=== PATIENT | female | born 1940 | race Caucasian/White ===

== ENCOUNTER 2020-02-17 13:46 | Emergency (ER) | payer MEDICARE, SELFPAY ==
[2020-02-17 14:12] VITALS: BP 121/67; PULSE 113; RESP 18; TEMP 37.2; O2SAT 95; BMI 29.0
--- NOTE | 2020-02-17 14:13 | XR_ITS ---
WS: [id number] RIGHT WRIST: 3 VIEW(S) TECHNIQUE: PA, oblique and lateral. HISTORY: fall COMPARISON: None available. Acute radial metaphyseal fracture with intra-articular extension. Mild posterior displacement and ove rlapping of the distal fracture involving the radius. Avulsion of the ulnar styloid. Soft tissue edema around the wrist. XR/XR wrist RT min 3V* [id number] IMPRESSION: 1. Transverse intra-articular fracture with dorsal displacement involving the radius. 2. Nondisplaced ulnar styloid fracture.
--- NOTE | 2020-02-17 14:22 | XR_ITS ---
WS: [id number] RIGHT KNEE: 3 VIEW(S) TECHNIQUE: AP, oblique(s) and lateral. HISTORY: fall COMPARISON: None available. Severe narrowing of the medial and patellofemoral joint compartments. No acute fracture is identified . Small osteophytes of all 3 compartments. No joint effusion. No soft tissue abnormality. XR/XR knee RT 3V* [id number] IMPRESSION: Severe medial and patellofemoral compartment osteoarthritis. No fracture.
[2020-02-17 15:12] VITALS: RESP 18
--- NOTE | 2020-02-17 15:14 | W.ED.FALL ---
HPI - Fall General: Chief Complaint: Extremity Injury, Upper Stated Complaint: fall/R wrist deformity Time Seen by Provider: 02/17/20 15:09 Source: patient Mode of arrival: ambulatory Limitations: no limitations History of Present Illness: HPI Narrative: Patient is a very nice 79-year-old female who comes in to the ED today for evaluation following a fall. Patient tells me she was cutting a branch in her yard and tripped and fell. She immediately noticed right wrist pain. She was able to get up and ambulate without assistance. She normally has pain in her right knee due to arthritis and noticed over the past 1 to 2 hours pain slightly worse than her baseline. MD complaint: fall Associated symptoms-after fall: Denies abdominal pain, chest pain or neck pain Review of Systems Eyes: Denies: change in vision, blurry vision, photophobia, floaters or seeing flashes Card: Denies: chest pain Resp: Denies: dyspnea GI: Denies: abdominal pain Musc: Reports: joint pain (chronic R knee-worse than baseline; R wrist) and joint swelling (chronic R knee); Denies: neck pain, back pain, extremity pain or extremity swelling PFSH ED PFSH: Social History Smoking and tobacco status: never smoked Physical Exam Const: COMMON NORMALS: no acute distress, average body habitus, patient oriented x3, no limitations, healthy appearing, alert and well nourished ORIENTATION/CONSCIOUSNESS: Yes oriented to person, Yes oriented to place and Yes oriented to time HENMT: COMMON NORMALS: normocephalic and atraumatic HEAD & SCALP: normocephalic and atraumatic Neck/C-Spine: COMMON NORMALS: full ROM CERVICAL SPINE: No Cervical spine tenderness and No Paracervical muscle tenderness Chest: COMMONS NORMALS: normal inspection of the chest and normal palpation of entire chest wall Resp: COMMON NORMALS: normal respiratory effort Back/Pelvis: COMMON NORMALS: thoracic and lumbar spine normal to inspection, no thoracic nor lumbar tenderness and thoraco-lumbar ROM normal Extremity: GENERAL: Yes normal exam except as noted OTHER: TTP R distal radius; deformity consistent with fracture; NV intact; swelling throughout R knee that is normal per patient; maintains ROM; ambulatory with limp Neuro: TISH COMA SCALE: document GCS findings [place] coma scale eye opening: Spontaneous [place] coma scale verbal response: Orientated [place] coma scale motor response: Obey commands Tish coma scale total score: 15 COMMON NORMALS: patient oriented x3, moves all extremities, no focal motor deficits and no sensory deficits noted SENSORIUM/ORIENTATION: Yes alert, Yes oriented to person, Yes oriented to place and Yes oriented to time Skin: COMMON NORMALS: no rashes or lesions noted GENERAL SKIN EXAM: no rashes or lesions noted Course Vital Signs: Vital signs: Vital Signs Temperature 98.9 F 02/17/20 14:12 Pulse Rate 113 H 02/17/20 14:12 Respiratory Rate 18 02/17/20 15:44 Blood Pressure 121/67 02/17/20 14:12 Pulse Oximetry 95 02/17/20 14:12 MDM - Fall Imaging Data^: R wrist XR: Radiologist's impression: [place] [address] XRay Report Signed Patient: Yara Skaggs Unit #: [id number] : 1940 Age/Sex: 79 / F ADM Date: 02/17/20 Loc: ER Room/Bed: Attending Dr: Ordering Provider/Ordering MD: Mery Gomez Date of Service: 02/17/20 Procedure(s): XR wrist RT min 3V* [id number] Accession Number(s): [id number] Report Number: [id number] WS: [id number] RIGHT WRIST: 3 VIEW(S) TECHNIQUE: PA, oblique and lateral. HISTORY: fall COMPARISON: None available. Acute radial metaphyseal fracture with intra-articular extension. Mild posterior displacement and overlapping of the distal fracture involving the radius. Avulsion of the ulnar styloid. Soft tissue edema around the wrist. XR/XR wrist RT min 3V* [id number] IMPRESSION: 1. Transverse intra-articular fracture with dorsal displacement involving the radius. 2. Nondisplaced ulnar styloid fracture. Dictated By: Judi Ngo DO Signed By: Judi Ngo DO Signed Date/Time: 02/17/201441 DD/ 1441 R knee XR: Radiologist's impression: [address] [address] XRay Report Signed Patient: Yara Skaggs Unit #: [id number] : 1940 Age/Sex: 79 / F ADM Date: 02/17/20 Loc: ER Room/Bed: Attending Dr: Ordering Provider/Ordering MD: Mery Gomez Date of Service: 02/17/20 Procedure(s): XR knee RT 3V* [id number] Accession Number(s): [id number] Report Number: [id number] WS: [id number] RIGHT KNEE: 3 VIEW(S) TECHNIQUE: AP, oblique(s) and lateral. HISTORY: fall COMPARISON: None available. Severe narrowing of the medial and patellofemoral joint compartments. No acute fracture is identified. Small osteophytes of all 3 compartments. No joint effusion. No soft tissue abnormality. XR/XR knee RT 3V* [id number] IMPRESSION: Severe medial and patellofemoral compartment osteoarthritis. No fracture. Dictated By: Judi Ngo DO Signed By: Judi Ngo DO Signed Date/Time: 02/17/201537 DD/ 36 Discharge Plan Discharge Patient Disposition: Home, Self-Care Clinical Impression: Closed fracture of right distal radius Qualifiers: Encounter type: initial encounter Fracture morphology: other intra-articular Qualified Code(s): S52.571A - Other intraarticular fracture of lower end of right radius, initial encounter for closed fracture Fracture of right ulnar styloid Qualifiers: Encounter type: initial encounter Fracture type: closed Fracture alignment: nondisplaced Qualified Code(s): S52.614A - Nondisplaced fracture of right ulna styloid process, initial encounter for closed fracture Condition: Stable Prescriptions: New hydrocodone-acetaminophen 5-325 mg tablet 1 tab PO Q6H PRN (Reason: pain) Qty: 15 RF: 0 Discharge Orders: Discharge Order (Routine); Ordered 02/17/20 Ordered By: Mery Gomez Referrals: Markel Correia MD [Primary Care Provider] - Activity Restrictions/Additional Instructions: As discussed you may continue your normal tramadol as needed for pain. If this is not controlling your pain you may switch and begin taking the hydrocodone I prescribed to you today. Please do not take both medications at the same time. As discussed case management will call you tomorrow to give you your appointment date and time for orthopedic follow-up. Discharge Date/Time: 02/17/20 15:46 Coding Level of Care Code ED Order Management Specialist for [place] Fwd Exam Comprehensive
[2020-02-17 15:44] VITALS: RESP 18
--- NOTE | 2020-02-18 10:25 | DCPLANNER ---
patient relations manager had message to schedule a follow up appointment for patient with ortho. patient relations manager called the ortho clinic, spoke with Maricruz, gave clinic patients information. patient relations manager was told that patients information would be printed and reviewed. Clinic will call case technician and patient with appointment information.
--- NOTE | 2020-02-22 07:33 | DCPLANNER ---
Patient had a follow up appointment scheduled for 02.21.20 with ortho, patient did attend the appointment.
== END 2020-02-17 15:46 | disposition home or self-care (01) ==
PROVIDERS: Emergency Provider Physician Assistant; PCP Family Medicine
DX: S52.571A Other intraarticular fracture of lower end of right radius, initial encounter for closed fracture (principal); S52.614A Nondisplaced fracture of right ulna styloid process, initial encounter for closed fracture; W18.09XA Striking against other object with subsequent fall, initial encounter
CPT/HCPCS: 12345; 29125; 73110; 73562; 99282; 99283

== ENCOUNTER → 2020-02-21 15:25 | Outpatient (BNVA) | payer MEDICARE, SELFPAY | PROVIDERS: PCP Family Medicine; Visit Provider Specialist | DX: S52.571A Other intraarticular fracture of lower end of right radius, initial encounter for closed fracture (principal); S52.614A Nondisplaced fracture of right ulna styloid process, initial encounter for closed fracture | CPT/HCPCS: 73110 ==

== ENCOUNTER 2020-02-21 17:14 | Outpatient (CLI) | payer MEDICARE, SELFPAY | END 2020-02-21 17:15 | disposition home or self-care (01) | LOC: SPT 17:15 | PROVIDERS: PCP Family Medicine; Visit Provider Specialist | DX: Z46.89 Encounter for fitting and adjustment of other specified devices (principal); S52.571D Other intraarticular fracture of lower end of right radius, subsequent encounter for closed fracture with routine healing; S52.614D Nondisplaced fracture of right ulna styloid process, subsequent encounter for closed fracture with routine healing; X58.XXXD Exposure to other specified factors, subsequent encounter | CPT/HCPCS: 73110; 97760; L3982 ==

== ENCOUNTER → 2020-03-06 10:40 | Outpatient (BNVA) | payer MEDICARE, SELFPAY | PROVIDERS: PCP Family Medicine; Visit Provider Specialist | DX: S52.571A Other intraarticular fracture of lower end of right radius, initial encounter for closed fracture (principal); S52.614A Nondisplaced fracture of right ulna styloid process, initial encounter for closed fracture; X58.XXXA Exposure to other specified factors, initial encounter | CPT/HCPCS: 73110 ==

== ENCOUNTER 2020-04-03 08:31 | Outpatient (CLI) | payer MEDICARE, SELFPAY ==
--- NOTE | 2020-04-03 08:40 | XR_ITS ---
WS: [id number] Right wrist, 3 views, 04/03/2020 Clinical Data: fracture Comparison: Right wrist, 03/06/2020. Findings: The fracture of the distal right radius again is seen. The ulnar styloid fracture is noted. No new fr actures or dislocations are seen. There is a cast about the right wrist. XR/XR wrist RT min 3V* [id number] Impression: No change in distal right radial fracture and right ulnar styloid fracture.
== END 2020-04-03 08:32 | disposition home or self-care (01) ==
LOC: RAD 08:36
PROVIDERS: PCP Family Medicine; Visit Provider Specialist
DX: S52.91XA Unspecified fracture of right forearm, initial encounter for closed fracture (principal); S52.611A Displaced fracture of right ulna styloid process, initial encounter for closed fracture; X58.XXXA Exposure to other specified factors, initial encounter
CPT/HCPCS: 73110

== ENCOUNTER 2020-04-03 11:54 | Outpatient (CLI) | payer MEDICARE, SELFPAY | END 2020-04-03 11:55 | disposition home or self-care (01) | LOC: SPT 11:54 | PROVIDERS: PCP Family Medicine; Visit Provider Specialist | DX: Z46.89 Encounter for fitting and adjustment of other specified devices (principal); S52.571A Other intraarticular fracture of lower end of right radius, initial encounter for closed fracture; S52.614A Nondisplaced fracture of right ulna styloid process, initial encounter for closed fracture; X58.XXXA Exposure to other specified factors, initial encounter; S52.91XA Unspecified fracture of right forearm, initial encounter for closed fracture; S52.611A Displaced fracture of right ulna styloid process, initial encounter for closed fracture | CPT/HCPCS: 73110; 97760; L3908 ==

== ENCOUNTER → 2022-02-05 08:39 | Outpatient (BNVA) | payer MEDICARE, SELFPAY | PROVIDERS: PCP Family Medicine; Visit Provider Family Medicine | DX: I48.91 Unspecified atrial fibrillation (principal); I25.10 Atherosclerotic heart disease of native coronary artery without angina pectoris; I10 Essential (primary) hypertension; Z51.81 Encounter for therapeutic drug level monitoring; E78.5 Hyperlipidemia, unspecified | CPT/HCPCS: 85610 ==

== ENCOUNTER → 2022-02-19 09:29 | Outpatient (BNVA) | payer MEDICARE, SELFPAY | PROVIDERS: PCP Family Medicine; Visit Provider Family Medicine | DX: I48.91 Unspecified atrial fibrillation (principal); I25.10 Atherosclerotic heart disease of native coronary artery without angina pectoris; I10 Essential (primary) hypertension; Z51.81 Encounter for therapeutic drug level monitoring; E78.5 Hyperlipidemia, unspecified | CPT/HCPCS: 85610 ==

== ENCOUNTER → 2022-03-19 11:27 | Outpatient (BNVA) | payer MEDICARE, SELFPAY | PROVIDERS: PCP Family Medicine; Visit Provider Family Medicine | DX: I48.91 Unspecified atrial fibrillation (principal); I25.10 Atherosclerotic heart disease of native coronary artery without angina pectoris; I10 Essential (primary) hypertension; Z51.81 Encounter for therapeutic drug level monitoring; E78.5 Hyperlipidemia, unspecified | CPT/HCPCS: 85610 ==

== ENCOUNTER → 2022-04-02 08:18 | Outpatient (BNVA) | payer MEDICARE, SELFPAY | PROVIDERS: PCP Family Medicine; Visit Provider Family Medicine | DX: I48.91 Unspecified atrial fibrillation (principal); I25.10 Atherosclerotic heart disease of native coronary artery without angina pectoris; I10 Essential (primary) hypertension | CPT/HCPCS: 85610 ==

== ENCOUNTER → 2022-04-30 08:39 | Outpatient (BNVA) | payer MEDICARE, SELFPAY | PROVIDERS: PCP Family Medicine; Visit Provider Family Medicine | DX: I25.10 Atherosclerotic heart disease of native coronary artery without angina pectoris (principal); S52.611A Displaced fracture of right ulna styloid process, initial encounter for closed fracture; S52.501A Unspecified fracture of the lower end of right radius, initial encounter for closed fracture | CPT/HCPCS: 85610 ==

== ENCOUNTER → 2022-05-28 08:24 | Outpatient (BNVA) | payer MEDICARE, SELFPAY | PROVIDERS: PCP Family Medicine; Visit Provider Family Medicine | DX: I25.10 Atherosclerotic heart disease of native coronary artery without angina pectoris (principal); S52.611A Displaced fracture of right ulna styloid process, initial encounter for closed fracture; X58.XXXA Exposure to other specified factors, initial encounter | CPT/HCPCS: 85610 ==

== ENCOUNTER → 2022-06-11 10:48 | Outpatient (BNVA) | payer MEDICARE, SELFPAY | PROVIDERS: PCP Family Medicine; Visit Provider Family Medicine | DX: I25.10 Atherosclerotic heart disease of native coronary artery without angina pectoris (principal); I50.9 Heart failure, unspecified; Z79.01 Long term (current) use of anticoagulants | CPT/HCPCS: 85610 ==

== ENCOUNTER 2022-06-14 08:39 | Outpatient (CLI) | payer MEDICARE, SELFPAY ==
[2022-06-14 09:29] LABS: INR 2.18 (0.8-1.2)
== END 2022-06-14 08:40 | disposition home or self-care (01) ==
LOC: LAB 08:42
PROVIDERS: PCP Family Medicine; Visit Provider Family Medicine
DX: Z79.01 Long term (current) use of anticoagulants (principal)
CPT/HCPCS: 85610

== ENCOUNTER → 2022-06-25 08:49 | Outpatient (BNVA) | payer MEDICARE, SELFPAY | PROVIDERS: PCP Family Medicine; Visit Provider Family Medicine | DX: Z79.01 Long term (current) use of anticoagulants (principal) | CPT/HCPCS: 85610 ==

== ENCOUNTER → 2022-07-09 08:59 | Outpatient (BNVA) | payer MEDICARE, SELFPAY | PROVIDERS: PCP Family Medicine; Visit Provider Family Medicine | DX: I48.91 Unspecified atrial fibrillation (principal); I25.10 Atherosclerotic heart disease of native coronary artery without angina pectoris; I10 Essential (primary) hypertension; Z79.01 Long term (current) use of anticoagulants | CPT/HCPCS: 85610 ==

== ENCOUNTER → 2022-07-30 08:14 | Outpatient (BNVA) | payer MEDICARE, SELFPAY | PROVIDERS: PCP Family Medicine; Visit Provider Family Medicine | DX: Z79.01 Long term (current) use of anticoagulants (principal); I25.10 Atherosclerotic heart disease of native coronary artery without angina pectoris | CPT/HCPCS: 85610 ==

== ENCOUNTER → 2022-08-23 12:15 | Outpatient (BNVA) | payer MEDICARE, SELFPAY | PROVIDERS: PCP Family Medicine; Visit Provider Family Medicine | DX: I25.10 Atherosclerotic heart disease of native coronary artery without angina pectoris (principal); Z79.01 Long term (current) use of anticoagulants | CPT/HCPCS: 85610 ==

== ENCOUNTER → 2022-09-03 10:34 | Outpatient (BNVA) | payer MEDICARE, SELFPAY | PROVIDERS: PCP Family Medicine; Visit Provider Family Medicine | DX: I25.10 Atherosclerotic heart disease of native coronary artery without angina pectoris (principal); Z79.01 Long term (current) use of anticoagulants | CPT/HCPCS: 85610 ==

== ENCOUNTER → 2022-09-19 09:29 | Outpatient (BNVA) | payer MEDICARE, SELFPAY | PROVIDERS: PCP Family Medicine; Visit Provider Family Medicine | DX: I48.91 Unspecified atrial fibrillation (principal); Z79.01 Long term (current) use of anticoagulants | CPT/HCPCS: 85610 ==

== ENCOUNTER → 2022-10-03 09:57 | Outpatient (BNVA) | payer MEDICARE, SELFPAY | PROVIDERS: PCP Family Medicine; Visit Provider Family Medicine | DX: I48.91 Unspecified atrial fibrillation (principal); Z79.01 Long term (current) use of anticoagulants | CPT/HCPCS: 85610 ==

== ENCOUNTER → 2022-10-04 08:49 | Outpatient (BNVA) | payer MEDICARE, SELFPAY | PROVIDERS: PCP Family Medicine; Visit Provider Internal Medicine Cardiovascular Disease | DX: I48.91 Unspecified atrial fibrillation (principal); I25.10 Atherosclerotic heart disease of native coronary artery without angina pectoris; Z95.3 Presence of xenogenic heart valve; I11.0 Hypertensive heart disease with heart failure; I50.9 Heart failure, unspecified; Z79.01 Long term (current) use of anticoagulants | CPT/HCPCS: 99214; Q3014 ==

== ENCOUNTER → 2022-10-31 09:41 | Outpatient (BNVA) | payer MEDICARE, SELFPAY | PROVIDERS: PCP Family Medicine; Visit Provider Family Medicine | DX: I48.91 Unspecified atrial fibrillation (principal); Z79.01 Long term (current) use of anticoagulants | CPT/HCPCS: 85610 ==

== ENCOUNTER → 2022-11-26 09:18 | Outpatient (BNVA) | payer MEDICARE, SELFPAY | PROVIDERS: PCP Family Medicine; Visit Provider Family Medicine | DX: I10 Essential (primary) hypertension (principal); I48.91 Unspecified atrial fibrillation; I25.10 Atherosclerotic heart disease of native coronary artery without angina pectoris | CPT/HCPCS: 80053; 80061; 85025; 85610 ==

== ENCOUNTER → 2022-12-05 09:00 | Outpatient (BNVA) | payer MEDICARE, SELFPAY | PROVIDERS: PCP Family Medicine; Visit Provider Family Medicine | DX: I48.91 Unspecified atrial fibrillation (principal); Z79.01 Long term (current) use of anticoagulants | CPT/HCPCS: 85610 ==

== ENCOUNTER → 2022-12-19 12:44 | Outpatient (BNVA) | payer MEDICARE, SELFPAY | PROVIDERS: PCP Family Medicine; Visit Provider Family Medicine | DX: I48.91 Unspecified atrial fibrillation (principal) | CPT/HCPCS: 85610 ==

== ENCOUNTER 2022-12-23 11:39 | Outpatient (CLI) | payer MEDICARE, SELFPAY ==
--- NOTE | 2022-12-23 12:15 | USCV_ITS ---
Yara Skaggs Age: 81 Gender: F : 1940 Exam Date: 12/23/2022 12:09 Ordering Phys: Laurence Holloway MD ([email or web address]) Technologist: Tyler Lee Exam Location: [facility] – [place] Indication: presence of xenogenic heart valves BP: 112 / 65 HR: 92 Rhythm: Other Technical Quality: Adequate MEASUREMENTS (Male / Female) Normal Values 2D ECHO LV Diastolic Diameter PLAX 4.9 cm 4.2 - 5.9 / 3.9 - 5.3 cm LV Systolic Diameter PLAX 3.6 cm IVS Diastolic Thickness 0.8 cm 0.6 - 1.0 / 0.6 - 0.9 cm IVS Systolic Thickness 1.2 cm LVPW Diastolic Thickness 1.3 cm 0.6 - 1.0 / 0.6 - 0.9 cm LVPW Systolic Thickness 1.3 cm LVOT Diameter 2.1 cm LV Ejection Fraction 2D Teich 50.1 % LV Ejection Fraction MOD 2C 55.2 % LV Ejection Fraction 2C AL 54.9 % LA Diameter 4.9 cm LA Width 3.7 cm LA Height 4.5 cm RA Width 4.2 cm RA Height 4.5 cm Aorta at Sinotubular Diameter 2.3 cm IVC Diameter 1.9 cm M-MODE Aortic Annulus Diameter 1.9 cm LA Ao Ratio MM 2.5 DOPPLER AV Peak Velocity 269.0 cm/s LVOT Peak Velocity 73.0 cm/s AV Area Cont Eq vti 1.0 cm squared AV Area Cont Eq pk 0.9 cm squared MV Peak Velocity 190.0 cm/s MV Area PHT 3.0 cm squared MV E' Velocity 84.5 cm/s Mitral E to MV E' Ratio 19.6 Mitral E to LV E' Lateral Ratio 13.3 Mitral E to LV E' Septal Ratio 38.3 TR Peak Velocity 305.0 cm/s TR Peak Gradient 37.2 mmHg TR Mean Velocity 238.1 cm/s TR Mean Gradient 24.7 mmHg TR Velocity Time Integral 92.8 cm Right Atrial Pressure 3.0 mmHg Pulmonary Artery Systolic Pressu 40.2 mmHg PV Peak Velocity 80.0 cm/s RV Acceleration Time 0.1 s RV Ejection Time 0.3 s RV AcT/ET 0.3 FINDINGS Left Ventricle Left ventricle is normal in size. LV systolic function is normal with EF 50 to 55%. No regional wall motion abnormalities are seen. Right Ventricle Mildly hypokinetic Right Atrium Normal in size Left Atrium Dilated Mitral Valve Bioprosthetic mitral valve is noted. Mean gradient across mitral valve is 5.2 mmHg. This is consistent with mild mitral stenosis. Mild mitral regurgitation. Aortic Valve Aortic valve is thickened and calcified. Moderate aortic stenosis with mean gradient across aortic valve of 16.3 mmHg and aortic valve area of 1 cm squared. Mild aortic regurgitation. Tricuspid Valve Mild to moderate tricuspid regurgitation. RVSP is 40 to 45 mmHg. This is consistent with mild pulmonary hypertension. Pulmonic Valve Not well-visualized. Mild pulmonic regurgitation. Pericardium Normal Aorta Normal in size IVC Appears to be normal CONCLUSIONS LV systolic function is normal with EF 50 to 55%. Mildly hypokinetic right ventricle Left atrial dilation Bioprosthetic mitral valve is noted. Mild mitral stenosis. Mild mitral regurgitation. Moderate aortic stenosis. Mild aortic regurgitation Mild to moderate tricuspid regurgitation Mild pulmonary hypertension Mild pulmonic regurgitation Compared to prior echocardiogram from 2017, patient now has moderate aortic stenosis and mild pulmonary hypertension. Moreno Brody MD (Electronically Signed) Final Date: 04 January 2023 14:16 S
== END 2022-12-23 11:40 | disposition home or self-care (01) ==
PROVIDERS: PCP Family Medicine; Visit Provider Internal Medicine Cardiovascular Disease
DX: Z95.3 Presence of xenogenic heart valve (principal); I27.20 Pulmonary hypertension, unspecified; I08.3 Combined rheumatic disorders of mitral, aortic and tricuspid valves
CPT/HCPCS: 93306

== ENCOUNTER → 2023-01-03 06:49 | Outpatient (BNVA) | payer MEDICARE, SELFPAY | PROVIDERS: PCP Family Medicine; Visit Provider Family Medicine | DX: I48.91 Unspecified atrial fibrillation (principal) | CPT/HCPCS: 85610 ==

== ENCOUNTER → 2023-01-29 12:16 | Outpatient (BNVA) | payer MEDICARE, SELFPAY | PROVIDERS: PCP Family Medicine; Visit Provider Family Medicine | DX: I48.91 Unspecified atrial fibrillation (principal) | CPT/HCPCS: 85610 ==

== ENCOUNTER → 2023-02-25 10:08 | Outpatient (BNVA) | payer MEDICARE, SELFPAY | PROVIDERS: PCP Family Medicine; Visit Provider Family Medicine | DX: I48.91 Unspecified atrial fibrillation (principal); Z79.01 Long term (current) use of anticoagulants | CPT/HCPCS: 85610 ==

== ENCOUNTER → 2023-03-27 08:49 | Outpatient (BNVA) | payer MEDICARE, SELFPAY | PROVIDERS: PCP Family Medicine; Visit Provider Family Medicine | DX: Z79.01 Long term (current) use of anticoagulants (principal) | CPT/HCPCS: 85610 ==

== ENCOUNTER → 2023-04-22 10:33 | Outpatient (BNVA) | payer MEDICARE, SELFPAY | PROVIDERS: PCP Family Medicine; Visit Provider Family Medicine | DX: I10 Essential (primary) hypertension (principal); I48.91 Unspecified atrial fibrillation; Z79.01 Long term (current) use of anticoagulants | CPT/HCPCS: 85610 ==

== ENCOUNTER → 2023-05-22 08:07 | Outpatient (BNVA) | payer MEDICARE, SELFPAY | PROVIDERS: PCP Family Medicine; Visit Provider Family Medicine | DX: I48.91 Unspecified atrial fibrillation (principal); Z79.01 Long term (current) use of anticoagulants | CPT/HCPCS: 85610 ==

== ENCOUNTER → 2023-05-27 08:55 | Outpatient (BNVA) | payer MEDICARE, SELFPAY | PROVIDERS: PCP Family Medicine; Visit Provider Family Medicine | DX: I48.91 Unspecified atrial fibrillation (principal); I10 Essential (primary) hypertension; I25.10 Atherosclerotic heart disease of native coronary artery without angina pectoris | CPT/HCPCS: 80053; 80061; 85025 ==

== ENCOUNTER → 2023-06-19 08:59 | Outpatient (BNVA) | payer MEDICARE, SELFPAY | PROVIDERS: PCP Family Medicine; Visit Provider Family Medicine | DX: I48.91 Unspecified atrial fibrillation (principal); Z79.01 Long term (current) use of anticoagulants | CPT/HCPCS: 85610 ==

== ENCOUNTER → 2023-07-17 08:21 | Outpatient (BNVA) | payer MEDICARE, SELFPAY | PROVIDERS: PCP Family Medicine; Visit Provider Family Medicine | DX: I48.91 Unspecified atrial fibrillation (principal); Z79.01 Long term (current) use of anticoagulants | CPT/HCPCS: 85610 ==

== ENCOUNTER → 2023-08-11 08:59 | Outpatient (BNVA) | payer MEDICARE, SELFPAY | PROVIDERS: PCP Family Medicine; Visit Provider Family Medicine | DX: Z79.01 Long term (current) use of anticoagulants (principal) | CPT/HCPCS: 85610 ==

== ENCOUNTER → 2023-09-09 09:17 | Outpatient (BNVA) | payer MEDICARE, SELFPAY | PROVIDERS: PCP Family Medicine; Visit Provider Family Medicine | DX: I48.91 Unspecified atrial fibrillation (principal) | CPT/HCPCS: 85610 ==

== ENCOUNTER → 2023-10-16 07:50 | Outpatient (BNVA) | payer MEDICARE, SELFPAY | PROVIDERS: PCP Family Medicine; Visit Provider Family Medicine | DX: Z79.01 Long term (current) use of anticoagulants (principal) | CPT/HCPCS: 85610 ==

== ENCOUNTER → 2023-11-13 08:51 | Outpatient (BNVA) | payer MEDICARE, SELFPAY | PROVIDERS: PCP Family Medicine; Visit Provider Family Medicine | DX: I48.91 Unspecified atrial fibrillation (principal) | CPT/HCPCS: 85610 ==

== ENCOUNTER → 2023-11-25 09:39 | Outpatient (BNVA) | payer MEDICARE, SELFPAY | PROVIDERS: PCP Family Medicine; Visit Provider Family Medicine | DX: I10 Essential (primary) hypertension (principal); I25.10 Atherosclerotic heart disease of native coronary artery without angina pectoris; I48.91 Unspecified atrial fibrillation | CPT/HCPCS: 80053; 80061; 85025 ==

== ENCOUNTER → 2023-12-11 08:21 | Outpatient (BNVA) | payer MEDICARE, SELFPAY | PROVIDERS: PCP Family Medicine; Visit Provider Family Medicine | DX: I48.91 Unspecified atrial fibrillation (principal) | CPT/HCPCS: 85610 ==

== ENCOUNTER 2023-12-18 10:39 | Outpatient (CLI) | payer MEDICARE, SELFPAY ==
--- NOTE | 2023-12-18 11:15 | USCV_ITS ---
Yara Skaggs Age: 82 Gender: F : 1940 Exam Date: 12/18/2023 11:00 Ordering Phys: Markel Correia MD Technologist: TESS Exam Location: [facility] – [place] Indication: AORTIC STENOSIS BP: 98 / 54 HR: 81 Rhythm: Sinus Technical Quality: Adequate MEASUREMENTS (Male / Female) Normal Values 2D ECHO LV Diastolic Diameter PLAX 4.8 cm 4.2 - 5.9 / 3.9 - 5.3 cm IVS Diastolic Thickness 1.5 cm 0.6 - 1.0 / 0.6 - 0.9 cm IVS Systolic Thickness 2.1 cm LVPW Diastolic Thickness 1.6 cm 0.6 - 1.0 / 0.6 - 0.9 cm LVPW Systolic Thickness 2.7 cm LVOT Diameter 2.0 cm LV Ejection Fraction 2D Teich 70.3 % LV Ejection Fraction MOD 2C 50.8 % LV Ejection Fraction 2C AL 53.5 % LA Diameter 4.3 cm RA Systolic Volume 4C AL 68.5 ml RA Systolic Volume 4C MOD 63.9 ml Aorta at Sinotubular Diameter 3.1 cm IVC Diameter 1.2 cm M-MODE LA Ao Ratio MM 1.6 AV Cusp Separation MM 1.0 cm DOPPLER AV Peak Velocity 248.3 cm/s LVOT Peak Velocity 106.0 cm/s AV Area Cont Eq vti 1.4 cm squared AV Area Cont Eq pk 1.3 cm squared MV Peak Velocity 188.0 cm/s MV Area PHT 2.4 cm squared Mitral E to A Ratio 0.0 TR Peak Velocity 236.0 cm/s TR Peak Gradient 22.3 mmHg TR Mean Velocity 185.0 cm/s TR Mean Gradient 14.7 mmHg TR Velocity Time Integral 70.8 cm TV Peak E Velocity 57.0 cm/s Right Atrial Pressure 3.0 mmHg Pulmonary Artery Systolic Pressu 25.3 mmHg PV Peak Velocity 86.0 cm/s RV Ejection Time 0.3 s FINDINGS Left Ventricle Left ventricle is normal in size. LV systolic function is normal with EF of 50-55%. No regional wall motion abnormalities are seen. Right Ventricle Mildly hypokinetic Right Atrium Normal in size Left Atrium Dilated Mitral Valve Bioprosthetic mitral valve is seen. Mean gradient across mitral valve is 5.2 mmHg. This is consistent with mild mitral stenosis. Mild mitral regurgitation. Aortic Valve Aortic valve is thickened. Mild to moderate aortic stenosis with aortic valve area 1.4 cm squared and mean gradient of 19 mmHg. Mild aortic regurgitation. Tricuspid Valve Mild to moderate tricuspid regurgitation. Pulmonary artery systolic pressure is normal. Pulmonic Valve Mild pulmonic regurgitation. Pericardium Normal Aorta Normal in size IVC Appears to be normal CONCLUSIONS LV systolic function is normal with EF of 50 to 55%. RV is mildly hypokinetic. Left atrial dilation. Bioprosthetic mitral valve is seen. Mild mitral stenosis. Mild mitral regurgitation. Mild to moderate aortic stenosis. Mild aortic regurgitation. Mild to moderate tricuspid regurgitation. Mild pulmonic regurgitation. Compared to prior echocardiogram from 12/2022, no significant changes are seen. Moreno Brody MD (Electronically Signed) Final Date: 23 December 2023 10:01 S
== END 2023-12-18 10:40 | disposition home or self-care (01) ==
LOC: RAD 10:39
PROVIDERS: PCP Family Medicine; Visit Provider Family Medicine
DX: Z95.3 Presence of xenogenic heart valve (principal); I08.3 Combined rheumatic disorders of mitral, aortic and tricuspid valves
CPT/HCPCS: 93306

== ENCOUNTER → 2024-01-08 08:46 | Outpatient (BNVA) | payer MEDICARE, SELFPAY | PROVIDERS: PCP Family Medicine; Visit Provider Family Medicine | DX: I48.91 Unspecified atrial fibrillation (principal) | CPT/HCPCS: 85610 ==

== ENCOUNTER → 2024-02-05 08:54 | Outpatient (BNVA) | payer MEDICARE, SELFPAY | PROVIDERS: PCP Family Medicine; Visit Provider Family Medicine | DX: I48.91 Unspecified atrial fibrillation (principal) | CPT/HCPCS: 85610 ==

== ENCOUNTER → 2024-03-04 08:12 | Outpatient (BNVA) | payer MEDICARE, SELFPAY | PROVIDERS: PCP Family Medicine; Visit Provider Family Medicine | DX: I48.91 Unspecified atrial fibrillation (principal) | CPT/HCPCS: 85610 ==

== ENCOUNTER → 2024-04-01 08:48 | Outpatient (BNVA) | payer MEDICARE, SELFPAY | PROVIDERS: PCP Family Medicine; Visit Provider Family Medicine | DX: I48.91 Unspecified atrial fibrillation (principal) | CPT/HCPCS: 85610 ==

== ENCOUNTER → 2024-04-29 08:22 | Outpatient (BNVA) | payer MEDICARE, SELFPAY | PROVIDERS: PCP Family Medicine; Visit Provider Family Medicine | DX: I48.91 Unspecified atrial fibrillation (principal) | CPT/HCPCS: 85610 ==

== ENCOUNTER → 2024-05-25 09:16 | Outpatient (BNVA) | payer MEDICARE, SELFPAY | PROVIDERS: PCP Family Medicine; Visit Provider Family Medicine | DX: I10 Essential (primary) hypertension (principal); I25.10 Atherosclerotic heart disease of native coronary artery without angina pectoris; I48.91 Unspecified atrial fibrillation; Z95.3 Presence of xenogenic heart valve | CPT/HCPCS: 80053; 80061; 85025; 85610 ==

== ENCOUNTER → 2024-06-14 08:43 | Outpatient (BNVA) | payer MEDICARE, SELFPAY | PROVIDERS: PCP Family Medicine; Visit Provider Family Medicine | DX: I48.91 Unspecified atrial fibrillation (principal) | CPT/HCPCS: 85610 ==

== ENCOUNTER 2024-06-30 08:45 | Outpatient (CLI) | payer MEDICARE, SELFPAY ==
--- NOTE | 2024-06-30 09:15 | USCV_ITS ---
Yara Skaggs Age: 83 Gender: F : 1940 Exam Date: 06/30/2024 09:20 Ordering Phys: Markel Correia MD Technologist: CT Exam Location[place] [facility] – [place] Indication: Risk Factors: Previous Vascular Surgery: Right Brachial BP: / Left Brachial BP: / Right Left Velocity (cm/s) Spectral Plaque Velocity (cm/s) Spectral Plaque Syst/Diast Broadening Syst/Diast Broadening 54.40/ 14.90 Prox CCA 56.60 / 17.80 53.60/ 14.20 Mid CCA 47.50 / 15.50 50.90/ 17.30 Distal CCA 47.00 / 15.60 99.10/ 31.90 Prox ICA 63.40 / 14.70 48.70/ 14.80 Mid ICA 57.00 / 17.60 52.70/ 17.20 Distal ICA 56.50 / 17.50 103.50 ECA 73.20 1.90 ICA/CCA 1.30 Antegrade Vertebral Antegrade 32.10/ 6.00 cm/s 22.50/ 7.90 cm/s Bi Subclavian Bi 56.80 59.80 CONCLUSIONS Right ICA stenosis <50%. Moderate to advanced calcified atheromatous plaque right carotid bulb/ICA. Left ICA stenosis <50%. Moderate atheromatous plaque left carotid bulb/ICA. Intimal thickening in the common carotid arteries and internal carotid arteries bilaterally. Normal antegrade Doppler flow noted in the right vertebral artery Normal antegrade Doppler flow noted in the left vertebral artery. Roland Gallegos MD (Electronically Signed) Final Date: 30 June 2024 11:37 S
== END 2024-06-30 08:46 | disposition home or self-care (01) ==
LOC: RAD 08:45
PROVIDERS: PCP Family Medicine; Visit Provider Family Medicine
DX: G45.9 Transient cerebral ischemic attack, unspecified (principal); I67.2 Cerebral atherosclerosis
CPT/HCPCS: 93880

== ENCOUNTER 2024-07-05 13:54 | Outpatient (CLI) | payer MEDICARE, SELFPAY ==
--- NOTE | 2024-07-05 13:59 | USCV_ITS ---
Yara Skaggs Age: 83 Gender: F : 1940 Exam Date: 07/05/2024 14:40 Ordering Phys: Markel Correia MD Technologist: CT Exam Location: [facility] – [place] Indication: BP: 128 / 66 HR: 97 Rhythm: Atrial fibrillation Technical Quality: Adequate MEASUREMENTS (Male / Female) Normal Values 2D ECHO LVOT Diameter 2.0 cm LV Ejection Fraction MOD 4C 57.4 % LV Ejection Fraction MOD 2C 46.2 % LV Ejection Fraction 2C AL 43.7 % LA Diameter 4.9 cm LA Sys Volume AL 120.0 cm cubed LA Sys Volume Index AL 58.6 cm cubed/m squared Aorta at Sinotubular Diameter 2.3 cm IVC Diameter 2.0 cm M-MODE LA Ao Ratio MM 2.5 AV Cusp Separation MM 1.0 cm DOPPLER AV Peak Velocity 290.3 cm/s LVOT Peak Velocity 197.0 cm/s AV Area Cont Eq vti 2.0 cm squared AV Area Cont Eq pk 2.2 cm squared MV Peak Velocity 181.0 cm/s MV Area PHT 3.3 cm squared Mitral E to A Ratio 47.8 TR Peak Velocity 276.0 cm/s TR Peak Gradient 30.5 mmHg TR Mean Velocity 205.0 cm/s TR Mean Gradient 18.7 mmHg TR Velocity Time Integral 55.9 cm TV Peak E Velocity 106.0 cm/s Right Atrial Pressure 3.0 mmHg Pulmonary Artery Systolic Pressu 33.5 mmHg PV Peak Velocity 115.5 cm/s FINDINGS Left Ventricle Normal left ventricular size and systolic function, EF 57%.no regional wall motion abnormalities. Right Ventricle The right ventricle is normal in size and function. Right Atrium Mildly increased right atrial size. Left Atrium Mildly increased left atrial size. Mitral Valve The bioprosthetic valve in the mitral position appears to be well-seated. Peak velocity across the valve was 1.8 m/s. The mitral valve area by pressure half-time was 3.3 cm squared Aortic Valve Trace aortic valve regurgitation. Mild aortic valve stenosis, mean gradient 18.4 mmHg, RONI 2 cm squared. Tricuspid Valve Moderate tricuspid valve regurgitation. Estimated pulmonary artery peak systolic pressure 34 mmHg Pulmonic Valve Trace pulmonary valve regurgitation. Pericardium Normal pericardium without effusion. Aorta Normal aortic annulus size. IVC Inferior vena cava not visualized. CONCLUSIONS Normal left ventricular size and systolic function, EF 57%.no regional wall motion abnormalities. Mild biatrial enlargementThe bioprosthetic valve in the mitral position appears to be well-seated. Peak velocity across the valve was 1.8 m/s. The mitral valve area by pressure half-time was 3.3 cm squared. . Mild aortic valve stenosis, mean gradient 18.4 mmHg, RONI 2 cm squared. Trace aortic valve regurgitation. Trace pulmonary valve regurgitation. There is no pericardial effusion. There are no intracardiac masses. Compared to the study from 12/18/2023, there may not be a significant change Dr Nesha Sharma MD [facility] (Electronically Signed) Final Date: 06 July 2024 13:53 S
== END 2024-07-05 13:55 | disposition home or self-care (01) ==
LOC: RAD 13:55
PROVIDERS: PCP Family Medicine; Visit Provider Family Medicine
DX: G45.9 Transient cerebral ischemic attack, unspecified (principal); I07.1 Rheumatic tricuspid insufficiency; Z95.2 Presence of prosthetic heart valve
CPT/HCPCS: 93306

== ENCOUNTER → 2024-07-22 07:59 | Outpatient (BNVA) | payer MEDICARE, SELFPAY | PROVIDERS: PCP Family Medicine; Visit Provider Family Medicine | DX: I48.91 Unspecified atrial fibrillation (principal) | CPT/HCPCS: 85610 ==

== ENCOUNTER → 2024-07-29 07:54 | Outpatient (BNVA) | payer MEDICARE, SELFPAY | PROVIDERS: PCP Family Medicine; Visit Provider Family Medicine | DX: I48.91 Unspecified atrial fibrillation (principal) | CPT/HCPCS: 85610 ==

== ENCOUNTER → 2024-08-24 08:31 | Outpatient (BNVA) | payer MEDICARE, SELFPAY | PROVIDERS: PCP Family Medicine; Visit Provider Family Medicine | DX: I48.91 Unspecified atrial fibrillation (principal) | CPT/HCPCS: 85610 ==

== ENCOUNTER → 2024-08-31 08:12 | Outpatient (BNVA) | payer MEDICARE, SELFPAY | PROVIDERS: PCP Family Medicine; Visit Provider Family Medicine | DX: I48.91 Unspecified atrial fibrillation (principal) | CPT/HCPCS: 85610 ==

== ENCOUNTER → 2024-09-30 08:33 | Outpatient (BNVA) | payer MEDICARE, SELFPAY | PROVIDERS: PCP Family Medicine; Visit Provider Family Medicine | DX: J06.9 Acute upper respiratory infection, unspecified (principal); I48.91 Unspecified atrial fibrillation | CPT/HCPCS: 85610 ==

== ENCOUNTER → 2024-10-28 07:49 | Outpatient (BNVA) | payer MEDICARE, SELFPAY | PROVIDERS: PCP Family Medicine; Visit Provider Family Medicine | DX: I48.91 Unspecified atrial fibrillation (principal) | CPT/HCPCS: 85610 ==

== ENCOUNTER → 2024-11-25 10:52 | Outpatient (BNVA) | payer MEDICARE, SELFPAY | PROVIDERS: PCP Family Medicine; Visit Provider Family Medicine | DX: I48.91 Unspecified atrial fibrillation (principal); I10 Essential (primary) hypertension; I25.10 Atherosclerotic heart disease of native coronary artery without angina pectoris; G45.9 Transient cerebral ischemic attack, unspecified | CPT/HCPCS: 80053; 80061; 85025; 85610 ==

== ENCOUNTER 2024-12-08 12:02 | Outpatient (CLI) | payer MEDICARE, SELFPAY ==
--- NOTE | 2024-12-08 12:10 | XRR_ITS ---
PROCEDURE INFORMATION: Exam: XR Chest Exam date and time: 12/08/2024 12:37 PM Age: 83 years old Clinical indication: Prior surgery; Surgery date: 6+ months; Surgery type: Heart; Concern for pnuemonia, HX of pnuemonia, worsening cough since chen TECHNIQUE: Imaging protocol: Radiologic exam of the chest. Views: 2 views. PA and Lateral COMPARISON: No relevant prior studies available. FINDINGS: Tubes, catheters and devices: Cardiac septal closure device is demonstrated. Lungs: Bilateral pulmonary linear interstitial opacities identified within lower lungs. The bilateral upper lungs appear clear. Pleural spaces: No pleural effusion. No pneumothorax. Heart/Mediastinum: Cardiac silhouette appears mildly enlarged. Coronary arterial calcifications are demonstrated. Vasculature: Tortuous and ectatic aorta is demonstrated. Severe atherosclerotic calcification and plaque demonstrated within the aorta. Bones/joints: Sternotomy wires, hardware is demonstrated. Diffusely decreased bone density. Moderate to severe generalized bony degenerative changes. XR/XR chest 2V* [id number] IMPRESSION: 1. Mild enlarged cardiac silhouette. 2. Pulmonary atelectasis or acute infiltrates within lower chest bilaterally. 3. Chronic findings. Degenerative and postsurgical changes are demonstrated, as described above.
== END 2024-12-08 12:03 | disposition home or self-care (01) ==
LOC: RAD 12:05
PROVIDERS: PCP Family Medicine; Visit Provider Family Medicine
DX: R05.9 Cough, unspecified (principal); I51.7 Cardiomegaly; R91.8 Other nonspecific abnormal finding of lung field; J98.4 Other disorders of lung; I25.10 Atherosclerotic heart disease of native coronary artery without angina pectoris; I77.819 Aortic ectasia, unspecified site; I70.0 Atherosclerosis of aorta; Z98.890 Other specified postprocedural states; M89.8X9 Other specified disorders of bone, unspecified site
CPT/HCPCS: 71046

== ENCOUNTER → 2024-12-16 09:38 | Outpatient (BNVA) | payer MEDICARE, SELFPAY | PROVIDERS: PCP Family Medicine; Visit Provider Family Medicine | DX: I48.91 Unspecified atrial fibrillation (principal) | CPT/HCPCS: 85610 ==

== ENCOUNTER → 2025-01-13 08:03 | Outpatient (BNVA) | payer MEDICARE, SELFPAY | PROVIDERS: PCP Family Medicine; Visit Provider Family Medicine | DX: I48.91 Unspecified atrial fibrillation (principal) | CPT/HCPCS: 85610 ==

== ENCOUNTER 2025-01-23 05:45 | Inpatient (IN) | payer MEDICARE, SELFPAY ==
[2025-01-23] VITALS (93 sets, daily range): BP systolic 54–201; BP diastolic 37–136; PULSE 77–126; RESP 13–29; TEMP 36.5–36.6; O2SAT 82–98; BMI 25.7; BMI 34.0
--- NOTE | 2025-01-23 06:05 | CTR_ITS ---
PROCEDURE INFORMATION: Exam: CT Abdomen And Pelvis With Contrast Exam date and time: 01/23/2025 6:49 AM Age: 84 years old Clinical indication: Abdominal pain; Additional info: Abd pain/gi bleed TECHNIQUE: Imaging protocol: Computed tomography of the abdomen and pelvis with contrast. Radiation optimization: All CT scans at this facility use at least one of these dose optimization techniques: automated exposure control; mA and/or kV adjustment per patient size (includes targeted exams where dose is matched to clinical indication); or iterative reconstruction. Contrast material: OMNI 350; Contrast volume: 100 ml; Contrast route: INTRAVENOUS (IV); COMPARISON: CR XR chest 2V* [id number] 12/08/2024 12:37 PM RADIATION DOSE METRICS: Total DLP (mGy-cm): 786.23 FINDINGS: Heart: Thinning of the left ventricular apex, compatible with prior infarct. Status post mitral valve replacement. Liver: Normal appearance of the liver. Gallbladder and biliary ducts: Cholelithiasis. Pancreas: No ductal dilation. Spleen: Unremarkable. Adrenal glands: Unremarkable. Kidneys and ureters: Simple bilateral renal cysts with additional subcentimeter hypoattenuating renal lesions, too small to accurately characterize. No hydronephrosis. Stomach and bowel: The colon is filled with blood with acute hemorrhage likely arising from the ascending colon (series 3, image 57). No bowel obstruction. No mucosal thickening. Appendix: No evidence of appendicitis. Intraperitoneal space: No free air. No significant fluid collection. Vasculature: Moderate atherosclerotic calcifications. Lymph nodes: No enlarged lymph nodes. Urinary bladder: Unremarkable as visualized. Reproductive: Unremarkable as visualized. Bones/joints: Status post median sternotomy. Moderate degenerative changes of the spine. Soft tissues: Unremarkable. CT/CT abdomen pelvis w con* [id number] IMPRESSION: Acute GI hemorrhage arising from the ascending colon. COMMENTS: Consistent with the [employer]'s Incidental Findings Committee white paper (J Am Neeraj Radiol 2018): Any incidental renal lesion less than 1 cm or classified as too small to characterize, or any incidental cystic renal lesion characterized as simple-appearing, is likely benign. No follow-up imaging is recommended for these lesions per consensus recommendations based on imaging criteria.
--- NOTE | 2025-01-23 06:07 | W.ED.GIBLEED ---
HPI - GI Bleed General: Chief complaint: GI Bleed Stated complaint: rectal bleeding Time Seen by Provider: 01/23/25 05:53 History of Present Illness: 84-year-old female who presents to the emergency room with complaints of bright red blood per rectum. Patient is on Coumadin for atrial fibrillation her last INR was 3.2. She woke up with lower abdominal pain and had 2 large bloody bowel movements after this. Present to the emergency room she is awake and alert mildly tachycardic she has a history of atrial fibrillation which is the indication for anticoagulation. She has some mild lower abdominal pain. She is not vomiting any blood. No previous abdominal surgeries. No known colon cancer. Associated symptoms: Denies abdominal pain, chills, fever(s), nausea, rash or vomiting Related Data Home Medications ?Medication ?Instructions ?Recorded ?Confirmed furosemide 40 mg tablet 40 mg PO BID 01/23/25 01/23/25 isosorbide mononitrate 30 mg 30 mg PO DAILY 01/23/25 01/23/25 tablet,extended release 24 hr losartan 50 mg tablet 50 mg PO DAILY 01/23/25 01/23/25 metoprolol tartrate 25 mg tablet 25 mg PO BID 01/23/25 01/23/25 potassium chloride 20 mEq 20 meq PO DAILY 01/23/25 01/23/25 tablet,extended release(part/cryst) trazodone 150 mg tablet 75 mg PO QPM 01/23/25 01/23/25 warfarin 4 mg tablet 4 mg PO DAILY 01/23/25 01/23/25 Previous Rx's ?Medication ?Instructions ?Recorded alprazolam 0.25 mg tablet 0.25 mg PO TID PRN anxiety #90 tabs 09/22/24 tramadol 50 mg tablet 50 mg PO QID PRN pain #120 tabs 09/22/24 Allergies Allergy/AdvReac Type Severity Reaction Status Date / Time cephalexin (From Keflex) Allergy ALGY-Bliste Verified 12/06/24 09:03 r Lxljhhr-AYV-UuS Reductase Allergy ADR-Insomni Verified 12/06/24 09:03 Inhibitor (Cclrgpt-Htv-Ouj a Reductase Inhibitor) Sulfa (Sulfonamide Allergy ALGY-Rash Verified 12/06/24 09:03 Antibiotics) cerivastatin (From Baycol) AdvReac Intermediate muscle pain Verified 12/06/24 09:03 hydrochlorothiazide AdvReac Intermediate rash Verified 12/06/24 09:03 pseudoephedrine (From AdvReac Intermediate palpitation Verified 12/06/24 09:03 Sudafed) s lisinopril AdvReac rash Verified 12/06/24 09:03 Review of Systems Const: Denies: fever(s) or chills Card: Denies: chest pain Resp: Denies: dyspnea GI: Denies: abdominal pain, nausea, vomiting or hematochezia : Denies: dysuria, urinary frequency or urinary urgency Musc: Denies: neck pain or back pain Skin/Breast: Denies: rash PFSH ED PFSH: Medical History Allergic rhinitis due to allergen Anticoagulant long-term use CAD (coronary artery disease) Atrial fibrillation HTN (hypertension) CHF (congestive heart failure) Surgical History History of mitral valve replacement with bioprosthetic valve Family History Other CAD (coronary artery disease) Cancer Congestive heart failure (CHF) Myocardial infarction Social History Smoking and tobacco/nicotine status: unknown if used tobacco/nicotine Alcohol intake: never Physical Exam Const: GENERAL APPEARANCE: cooperative ORIENTATION/CONSCIOUSNESS: Yes awake, Yes oriented to person, Yes oriented to place and Yes oriented to time HENMT: COMMON NORMALS: normocephalic, atraumatic and hearing grossly normal bilaterally HEAD & SCALP: normocephalic and atraumatic Resp: COMMON NORMALS: normal respiratory effort, No retractions, No use of accessory muscles and clear to auscultation bilaterally AUSCULTATION: clear to auscultation bilaterally Cardio: COMMON NORMALS: regular rate, regular rhythm and No murmurs present (Cardio) RATE: regular rate RHYTHM: regular rhythm GI: COMMON NORMALS: No hepatosplenomegaly present AUSCULTATION: Yes normoactive bowel sounds PALPATION: Yes Tenderness to palpation present (GI) (Lower abdomen), No Guarding due to palpation present (GI) and Yes No hepatosplenomegaly present Extremity: COMMON NORMALS: normal to inspection, capillary refill normal, no clubbing, cyanosis or edema, no calf tenderness and no pedal edema Neuro: SENSORIUM/ORIENTATION: Yes oriented to person, Yes oriented to place and Yes oriented to time Skin: COMMON NORMALS: no rashes or lesions noted GENERAL SKIN EXAM: no rashes or lesions noted Procedures Central Line Placement Right IJ: Time Out Performed: Yes Patient Placed on Monitor/Pulse Ox: Yes MD Prep: mask, gown and gloves Central Line Prep: Chlorhexidine scrub Local Anesthetic: lidocaine 1% Amount of anesthesia used (mL): 6 Ultrasound Used for Placement: Yes Central Line Lumen Inserted: triple Post Procedure: sutured in place, good blood return, all ports aspirated, flushed, capped and sterile dressing applied Post Procedure X-Ray: tip of catheter in good position Patient Tolerated Procedure: well Complications: none Course Vital Signs: Vital signs: Vital Signs Temperature 98.1 F 01/24/25 06:26 Pulse Rate 98 01/24/25 04:30 Respiratory Rate 14 01/24/25 04:30 Blood Pressure 120/70 01/24/25 04:30 Pulse Oximetry 95 01/24/25 04:30 Oxygen Delivery Me thod Room Air 01/23/25 16:05 MDM - GI Bleed Medical Decision Making Discussed with Dr. Paris. He felt he could manage the patient here we reversed her Coumadin we initially given her vitamin K when she first arrived then when she had several large bowel movements she was given fresh frozen plasma and Kcentra. Because of the volume of bloody bowel movements she was transfused 2 units of blood. Central line was placed for further time she also required pressors to maintain her blood pressure she had a sudden transient drop in her blood pressure. We were able to titrate her back off of the Levophed after she had received 2 units of blood and IV fluids. Her INR was rechecked and it decreased to 1.2. Hemoglobin after 1 unit of blood and the several large bloody bowel movements was down to 9.9. Later recheck it had increased over 11. Patient at this time is stable Dr. Hudson still feels this can be managed at our facility. I have discussed with hospitalist as well will admit orders written for the ICU Medical Records I reviewed the patient's medical records. Lab Data I reviewed the patient's lab results. 01/24/25 04:48 01/24/25 04:48 Radiology Impressions Abdomen/Pelvis CT 01/23/25 06:05 IMPRESSION: Acute GI hemorrhage arising from the ascending colon. COMMENTS: Consistent with the [employer]'s Incidental Findings Committee white paper (J Am Neeraj Radiol 2018): Any incidental renal lesion less than 1 cm or classified as too small to characterize, or any incidental cystic renal lesion characterized as simple-appearing, is likely benign. No follow-up imaging is recommended for these lesions per consensus recommendations based on imaging criteria. ADDENDUM: 01/23/25 0755 COMMENT: THIS REPORT CONTAINS FINDINGS THAT MAY BE CRITICAL TO PATIENT CARE. The exam findings were verbally communicated by me to MOOKIE TATUM via telephone conference at 7:52 AM CDT on 01/23/2025. The findings were acknowledged and understood. Chest X-Ray 01/23/25 08:09 IMPRESSION: The right IJ catheter terminates in the right atrium. Laboratory Results WBC 10.31 10^3/uL (3.29-11.43) 01/23/25 10:57 RBC 3.85 10^6/uL (3.85-5.65) 01/23/25 10:57 Hgb 11.60 g/dL (11.27-16.99) 01/23/25 10:57 Hct 36.6 % (36-47) 01/23/25 10:57 MCV 95.1 fl (85-98) 01/23/25 10:57 MCH 30.1 pg (27-33) 01/23/25 10:57 MCHC 31.7 g/dL (30-55) 01/23/25 10:57 RDW 14.3 % (12.1-15.1) 01/23/25 10:57 Plt Count 174 10^3/cmm (157-399) 01/23/25 10:57 MPV 11.1 fL (7.4-10.4) H 01/23/25 10:57 Neut % (Auto) 82.1 % 01/23/25 10:57 Lymph % (Auto) 11.7 % 01/23/25 10:57 Coles % (Auto) 4.1 % 01/23/25 10:57 Eos % (Auto) 0.3 % 01/23/25 10:57 Baso % (Auto) 0.6 % 01/23/25 10:57 Neut # (Auto) 8.47 10^3/uL (1.8-7.7) H 01/23/25 10:57 Lymph # (Auto) 1.2 10^3/uL (0.8-4.8) 01/23/25 10:57 Coles # (Auto) 0.4 10^3/uL (0.2-0.9) 01/23/25 10:57 Eos # (Auto) 0.0 10^3/uL (0.0-0.8) 01/23/25 10:57 Baso # (Auto) 0.1 10^3/uL (0.0-0.1) 01/23/25 10:57 Nucleated RBC % (auto) 0 % 01/23/25 10:57 Nucleated RBCs # 0.0 /100WBC 01/23/25 10:57 PT 16.10 SECONDS (12.1-14.9) H 01/23/25 10:57 INR 1.21 (0.8-1.2) H 01/23/25 10:57 APTT 57.2 SECONDS (23.9-36.7) H 01/23/25 05:55 Sodium 140 mmol/L (136-145) 01/23/25 05:55 Potassium 3.7 mmol/L (3.5-5.1) 01/23/25 05:55 Chloride 105 mmol/L (98-107) 01/23/25 05:55 Carbon Dioxide 22 mmol/L (22-29) 01/23/25 05:55 Anion Gap 16.7 (5-19) 01/23/25 05:55 BUN 21 mg/dL (8-23) 01/23/25 05:55 Creatinine 1.0 mg/dL (0.5-0.9) H 01/23/25 05:55 GFR Calculation Not Reportable 01/23/25 05:55 Glucose 139 mg/dL (65-115) H 01/23/25 05:55 Calculated Osmolality 295 mOsm/kg (285-295) 01/23/25 05:55 Lactic Acid 1.2 mmol/L (0.5-2.2) 01/23/25 12:25 Lactic Acid (Sepsis) 1.1 mmol/L (0.5-2.2) 01/23/25 08:40 Calcium 9.1 mg/dL (8.5-10.5) 01/23/25 05:55 Iron 76 ug/dL (37-145) 01/23/25 05:55 TIBC 240 mcg/dl 01/23/25 05:55 % Saturation 31.6 % (20-50) 01/23/25 05:55 Unsat Iron Binding 164 ug/dL (112-347) 01/23/25 05:55 Total Bilirubin 0.8 mg/dL (0.15-1.2) 01/23/25 05:55 AST 13 U/L (0-32) 01/23/25 05:55 ALT 10 U/L (0-33) 01/23/25 05:55 Alkaline Phosphatase 101 U/L (35-105) 01/23/25 05:55 C-Reactive Protein 3.6 mg/L (0.0-4.9) 01/23/25 05:55 Total Protein 7.4 g/dL (6.6-8.7) 01/23/25 05:55 Albumin 3.8 g/dL (3.5-5.2) 01/23/25 05:55 Globulin 3.6 g/dL (1.3-4.6) 01/23/25 05:55 Vitamin B12 428 pg/mL (232-1245) 01/23/25 05:55 Procalcitonin 0.05 ng/mL (0-0.5) 01/23/25 05:55 TSH 1.75 uIU/mL (0.27-4.20) 01/23/25 05:55 Urine Color Yellow (Yellow) 01/23/25 07:31 Urine Appearance Clear (CLEAR) 01/23/25 07:31 Urine pH 5 (5-7) 01/23/25 07:31 Ur Specific [place] 1.015 (1.005-1.030) 01/23/25 07:31 Urine Protein 2+ (Negative) H 01/23/25 07:31 Urine Glucose (UA) Norm (Normal) 01/23/25 07:31 Urine Ketones Negative (Negative) 01/23/25 07:31 Urine Blood Neg (Negative) 01/23/25 07: Urine Nitrate Negative (Negative) 01/23/25 07:31 Urine Bilirubin Neg (Negative) 01/23/25 07:31 Urine Urobilinogen Norm mg/dL (Negative) 01/23/25 07:31 Ur Leukocyte Esterase Negative (Negative) 01/23/25 07:31 Urine RBC Rare /hpf (0-2) 01/23/25 07:31 Urine WBC Rare /hpf (0-5) 01/23/25 07:31 Ur Squamous Epith Cells 0-4 /hpf (0-5) H 01/23/25 07:31 Amorphous Sediment Not Reportable 01/23/25 07:31 Urine Bacteria 1+ /hpf (NONE) H 01/23/25 07:31 Hyaline Casts 0-4 /lpf H 01/23/25 07:31 Fine Granular Casts 0-4 /lpf H 01/23/25 07:31 Blood Type O Negative 01/23/25 05:55 Rho(D) Type Rh negative 01/23/25 05:55 Antibody Screen Negative 01/23/25 05:55 Crossmatch See Detail 01/23/25 05:55 All radiology interpretation(s) finalized by discharge Critical Care Time Critical Care Time: Critical Care Time: Yes Total Critical Care Time: 45 Attestation: The high probability of a clinically significant, sudden or life threatening deterioration of the patient's cardiovascular hematologic GI system(s) required my full and direct attention, intervention and personal management. The critical care time is as shown. This time is in addition to time spent performing any reported procedures but includes the following: [x] Data and vital sign review and interpretation [x] Patient assessment, examination and intervention [x] Documentation [x] Medication orders and management Discharge Plan Discharge Patient Disposition: Admitted As Inpatient Admit Provider: Brian Shah Clinical Impression: Lower GI bleed, Hemorrhagic shock, History of mitral valve replacement with bioprosthetic valve, On Coumadin for atrial fibrillation, Atrial fibrillation, CAD (coronary artery disease) Condition: Stable Coding Level of Care Code ED Epic Cupid Analyst for Chelsea Lyles
[2025-01-23 06:08] LABS: Basophils # 0.1 10^3/uL (0.0-0.1); Basophils % 0.9 %; Eosinophils # 0.4 10^3/uL (0.0-0.8); Eosinophils % 3.9 %; Hematocrit 38.6 % (36-47); Lymphocytes # 2.8 10^3/uL (0.8-4.8); Lymphocytes % 30.8 %; Mean Corpuscular HGB Conc 32.4 g/dL (30-55); Mean Corpuscular Hemoglobin 30.2 pg (27-33); Mean Corpuscular Volume 93.2 fl (85-98); Monocytes # 0.6 10^3/uL (0.2-0.9); Monocytes % 6.4 %; Neutrophils % 56.9 %; Nucleated Red Blood Cells % 0 %; Platelet Count 242 10^3/cmm (157-399); Red Blood Count 4.14 10^6/uL (3.85-5.65); Red Cell Distribution Width 14.4 % (12.1-15.1); White Blood Count 9.15 10^3/uL (3.29-11.43)
[2025-01-23] MEDS: phytonadione (ADULT) 10 mg/mL Ampule 1 mL PO (06:13)
[2025-01-23] MEDS: sodium chloride 0.9% 1,000 ML 999 ML IV (06:15)
[2025-01-23] MEDS: metoprolol tartrate 25 mg Tablet 12.5 MG PO (06:18)
[2025-01-23 06:20] LABS: INR 2.17 (0.8-1.2); Partial Thromboplastin Time 57.2 SECONDS (23.9-36.7)
[2025-01-23 06:28] LABS: Alanine Aminotransferase 10 U/L (0-33); Albumin Level 3.8 g/dL (3.5-5.2); Alkaline Phosphatase 101 U/L (35-105); Anion Gap 16.7 (5-19); Aspartate Amino Transferase 13 U/L (0-32); Blood Urea Nitrogen 21 mg/dL (8-23); C Reactive Protein 3.6 mg/L (0.0-4.9); Calcium 9.1 mg/dL (8.5-10.5); Carbon Dioxide 22 mmol/L (22-29); Chloride 105 mmol/L (98-107); Creatinine Clr Calc Pharmacy 38.2727; Globulin 3.6 g/dL (1.3-4.6); Glucose 139 mg/dL (65-115); Lactic Sepsis W/Reflex 2.7 mmol/L (0.5-2.2); Osmolality Calculated 295 mOsm/kg (285-295); Potassium 3.7 mmol/L (3.5-5.1); Sodium 140 mmol/L (136-145); Total Bilirubin 0.8 mg/dL (0.15-1.2); Total Protein 7.4 g/dL (6.6-8.7)
[2025-01-23 06:33] LABS: Reflex Lactate Order REFLEX LACTIC ORDERD
[2025-01-23] MEDS: iohexol 350 mg/mL 500 mL Btl (per mL) IV (06:53)
--- NOTE | 2025-01-23 08:09 | XRR_ITS ---
PROCEDURE INFORMATION: Exam: XR Chest Exam date and time: 01/23/2025 8:13 AM Age: 84 years old Clinical indication: Device placement; Other: Central line placement TECHNIQUE: Imaging protocol: Radiologic exam of the chest. Views: 1 view. COMPARISON: CR XR chest 2V* [id number] 12/08/2024 12:37 PM FINDINGS: Tubes, catheters and devices: Right IJ catheter terminates in the right atrium. Lungs: Unremarkable. No consolidation. Pleural spaces: Unremarkable. No pleural effusion. No pneumothorax. Heart/Mediastinum: See Vasculature finding. Vasculature: Borderline cardiomegaly and uncoiling of the thoracic aorta. Diaphragm: Minimally blunted left CP angle, a tiny effusion may be present. Bones/joints: Status post median sternotomy. XR/XR chest 1V portable [id number] IMPRESSION: The right IJ catheter terminates in the right atrium.
[2025-01-23] MEDS: hum prothrombin cplx(pcc)4fact 1,000 UNIT, hum prothrombin cplx(pcc)4fact 500 UNIT in e... 60 UNIT IV (08:35)
[2025-01-23 08:36] LABS: Add Urine Microscopic? YES; Bacteria Urine 1+ /hpf; Bilirubin Urine Neg (Negative); Blood Urine Neg (Negative); Fine Granular Casts Urine 0-4 /lpf; Glucose Urine UA Norm (Normal); Hyaline Casts Urine 0-4 /lpf; Ketones Urine Negative (Negative); Leukocyte Esterase Urine Negative (Negative); Nitrate Urine Negative (Negative); Protein Urine 2+ (Negative); RBC Urine RARE /hpf (0-2); Specific Gravity, Urine 1.015 (1.005-1.030); Squamous Epithelial Cell Urine 0-4 /hpf (0-5); UA Manual Slide Review YES; Urine Appearance Clear (CLEAR); Urine Color Yellow (Yellow); Urobilinogen Urine Norm (Negative); WBC Urine RARE /hpf (0-5); pH Urine 5 (5-7)
[2025-01-23 08:37] LABS: Add Urine Culture? No
[2025-01-23 08:44] LABS: Hematocrit 31.1 % (36-47)
[2025-01-23] MEDS: sodium chloride 0.9% 100 mL Bag 50 ML IV (08:46)
[2025-01-23] MEDS: norepinephrine 4 MG/250 ML BAG 7.5 MG IV (08:48)
[2025-01-23] MEDS: piperacillin-tazobactam 3.375 GM in sodium chloride 0.9% (plus) 50 ML IV ×3 (08:52→23:36)
[2025-01-23 09:00] LABS: Lactic Acid level (Lactate) 1.1 mmol/L (0.5-2.2)
--- NOTE | 2025-01-23 09:05 | PC.NURSE ---
this RN was attempting to start another IV when provider asked for trauma room and pt to be set up for central line placement. pts pressure continued to drop and pt was moved to room 11 around 0800. blood was started on pt in her 20g IV that was placed in her LAC. pressure was 78/60, provider gave verbal order for levophed to be started at 4mcgs after line placement. when line was placed by provider, the blood, FFP, and levophed were moved to central line. FFP and blood were emergently ran in wide open. pts pressure began to stabilize and levophed was titrated down to 2mcg, and then again to 1mcg. pt stabilized, AOx4 with family at bedside. all consents for blood and procedure were obtained and placed in pts chart. all pts belongings are at bedside and include 1 bag of clothes, purse, and a cane.
--- NOTE | 2025-01-23 09:26 | PM.CONSULT ---
Providers/Reason For Consult Consulting Physician/Specialty*: MD Rc ER provider Reason for Consult*: GI bleeding Requesting Physician: MD Rc ER provider Primary Care Provider: Markel Correia MD History of Present Illness History of Present Illness Yara Skaggs is a 84 year old female less than one day history of melanotic stools with active bleeding seen on CT scan with IV contrast. She is on coumadin for afib and history of distant stroke and CAD. SHe had biologic heart valve replacement 8 years ago. She has been given some FFP and PRBC and Kcentra and Vit K. SHe is on levophed drip and central line in place. Review of Systems Narrative: Constitutional: denies rigors, singnificant weight gain, increased appetite HEENT: denies chronic cough, blurry vision, excessive tearing, eye pain, flashing lights, odynophagia, painful mastication, change in voice, change in taste, chronic sore throat, hypersalivation Heart: denies palpitations, othropnea, PND Lungs: denies hemoptysis, pain with deep inspiration, chronic bronchitis GI: denies hematemesis, hematochezia, dysphagia, tenesmus : denies polyuria, hematuria, painful micturation Musculoskeletal: denies hemarthrosis, Muscle wasting, change in amubation Neuro: denies new onset syncope, dysesthesia, dysequilibrium, ptosis eyelid or face SKin: denies new onset hyperalgia, new rash new cyanosis Endocrine: denies new polyuria, polydipsia, polyphagia, heat intolerance, excessive energy Hem/Onc: denies new petechiae, swollen glands, new excessive epstaxis Psych: denies racing thought Medications/Allergies Home Medications ?Medication ?Instructions ?Recorded ?Confirmed ?Last Taken ?Type alprazolam 0.25 mg tablet 0.25 mg PO TID PRN anxiety #90 tabs 09/22/24 01/23/25 Unknown Rx tramadol 50 mg tablet 50 mg PO QID PRN pain #120 tabs 09/22/24 01/23/25 Unknown Rx furosemide 40 mg tablet 40 mg PO BID 01/23/25 01/23/25 01/22/25 History isosorbide mononitrate 30 mg 30 mg PO DAILY 01/23/25 01/23/25 01/22/25 History tablet,extended release 24 hr losartan 50 mg tablet 50 mg PO DAILY 01/23/25 01/23/25 01/22/25 History metoprolol tartrate 25 mg tablet 25 mg PO BID 01/23/25 01/23/25 01/22/25 History potassium chloride 20 mEq 20 meq PO DAILY 01/23/25 01/23/25 01/22/25 History tablet,extended release(part/cryst) trazodone 150 mg tablet 75 mg PO QPM 01/23/25 01/23/25 01/22/25 History warfarin 4 mg tablet 4 mg PO DAILY 01/23/25 01/23/25 01/22/25 History Allergies Allergy/AdvReac Type Severity Reaction Status Date / Time cephalexin (From Keflex) Allergy ALGY-Bliste Verified 12/06/24 09:03 r Apudvea-VAY-DyK Reductase Allergy ADR-Insomni Verified 12/06/24 09:03 Inhibitor (Klquqne-Mzi-Yoq a Reductase Inhibitor) Sulfa (Sulfonamide Allergy ALGY-Rash Verified 12/06/24 09:03 Antibiotics) cerivastatin (From Baycol) AdvReac Intermediate muscle pain Verified 12/06/24 09:03 hydrochlorothiazide AdvReac Intermediate rash Verified 12/06/24 09:03 pseudoephedrine (From AdvReac Intermediate palpitation Verified 12/06/24 09:03 Sudafed) s lisinopril AdvReac rash Verified 12/06/24 09:03 Current Medications Generic Name Dose Route Start Last Admin Trade Name Freq PRN Reason Stop Dose Admin Norepinephrine Bitartrate 4 mg in 250 mls @ 0 mls/hr 01/23/25 08:15 01/23/25 08:55 Levophed IV 1 mcg/min .Q0M HIREN 3.75 mls/hr Protocol Titration Per Protocol Sodium Chloride 50 ml 01/23/25 07:33 01/23/25 08:46 Sodium Chloride 0.9% 100 Ml Bag IV 01/24/25 07:33 50 ml PRN PRN Administration Blood transfusion prime and flush PFSH Acute PFSH: Medical History Allergic rhinitis due to allergen Anticoagulant long-term use CAD (coronary artery disease) Atrial fibrillation HTN (hypertension) CHF (congestive heart failure) Surgical History History of mitral valve replacement with bioprosthetic valve Family History Other CAD (coronary artery disease) Cancer Congestive heart failure (CHF) Myocardial infarction Social History Smoking and tobacco/nicotine status: unknown if used tobacco/nicotine Alcohol intake: never Vitals/I&O/Wt Last Vital Signs Temp 98 F 01/23/25 06:17 Pulse 105 H 01/23/25 07:38 Resp 24 H 01/23/25 07:38 BP 78/60 01/23/25 07:38 Pulse Ox 95 01/23/25 07:38 O2 Del Method Room Air 01/23/25 07:03 01/22/25 01/23/25 01/23/25 22:59 06:59 14:59 Intake Total 0 / 0 1000.875 / 1000.875 Balance 0 / 0 1000.875 / 1000.875 Weight last 48 hrs Weight 150 lb Physical Exam Narrative: Patient is a well developed well nourished and in NAD and is afebrile with vitals stable and is answering questions appropriately with a normal affect and is alert and oriented x3 HEENT: normocephalic with normal external ears and nonicteric, oral mucosa moist and dentition normal for age, trachea midline with no large masses visualized Heart: RRR, no gallops murmurs or rubs, normal PMI with no thrills Lungs: normal excursions, no loud audible wheezing, no subcutaneous emphysema Abdomen: nondistended, no gross hepatosplenomegaly, no masses, no rigidity or rebound, no loud borborygmi Neuro: nonfocal, SANDHU, grossly normal sensation Musculoskeletal: good muscle tone, no fasciculations Skin: pink warm and dry with no rashes or ecchymosis Vascular: good radial pulses, no ulceration, less than 2 second capillary refill in hand : deferred Data 01/23/25 08:40 01/23/25 05:55 Micro: Microbiology 01/23/25 07:08 Blood Culture - Preliminary Blood SPECIMEN COLLECTED 01/23/25 07:10 Blood Culture - Preliminary Blood SPECIMEN COLLECTED A&P Assessment and plan (1) GI bleeding: Patient getting FFP and kcentra and will monitor INR. Will try to get to INR 1.5 or lower. Hopefully she will stop bleeding after reversal. Will try to scope by bedside to see if any bleeding seen in sigmoid or rectum and will try to clean out with irrigation with water/golytely. May try to repeat scope later in day if unstable. Will try to clean out from above with golytely and plan urgent colonscopy tomorrow if possible. If bleeding does not stop after reversal of anticoagulation then consider angio emolism by IR to control bleeding. Plan Patient will go to ICU for vasopressor support and transfutions. PDMP PDMP Reviewed: Not Reviewed Coding Level of Care Code 80970 Diagnoses GI bleeding K92.2
[2025-01-23] MEDS: peg /e-lyte soln 4,000 mL Btl 4000 ML PO (09:32)
--- NOTE | 2025-01-23 10:35 | P.OP_ITS ---
Operative Report Date of procedure: January 23, 2025 Pre-op diagnosis: Lower GI bleed Post-op diagnosis: Same Post-op findings: Sigmoid and rectum without inflammation or any site of active bleeding. Old clotted blood seen. Some diverticuli seen sigmoid Procedure done: Flexible sigmoidoscopy Specimens removed/disposition: none Surgeon: Dawson Bartholomew MD Anesthesia: None Estimated blood loss (mL): 0 Brief History: Patient on coumadin for afib and with Lower GI bleed with blush seen on CT angio of abdomen in right colon. She understands risks benefits and alternatives to procedure and wishes to proceed. Risks include bleeding, infection, cardiopulmonary problems, perforation, missed lesion, more procedures, aspiration. Procedure: Patient placed in left lateral postion and digital rectal exam done and no mass lesions seen or felt. Flexible colonoscope was inserted and rectum full or c lotted old blood and liquid blood that appeared old. The clots were irrigated out with warm golytely and clots were sucked out or pulled out of rectum. Was able to insert scope to 30 cm above sigmoid but patient was starting to feel gas pains so did not go further. About a quarter of a gallon of golytely was used to irriogate out the bowel with some of it aspirated out. She tolerated procedure well.
[2025-01-23 11:03] LABS: Basophils # 0.1 10^3/uL (0.0-0.1); Basophils % 0.6 %; Eosinophils % 0.3 %; Hematocrit 36.6 % (36-47); Lymphocytes # 1.2 10^3/uL (0.8-4.8); Lymphocytes % 11.7 %; Mean Corpuscular HGB Conc 31.7 g/dL (30-55); Mean Corpuscular Hemoglobin 30.1 pg (27-33); Mean Corpuscular Volume 95.1 fl (85-98); Mean Platelet Volume 11.1 fL (7.4-10.4); Monocytes # 0.4 10^3/uL (0.2-0.9); Monocytes % 4.1 %; Neutrophils # 8.47 10^3/uL (1.8-7.7); Neutrophils % 82.1 %; Nucleated Red Blood Cells % 0 %; Platelet Count 174 10^3/cmm (157-399); Red Blood Count 3.85 10^6/uL (3.85-5.65); Red Cell Distribution Width 14.3 % (12.1-15.1); White Blood Count 10.31 10^3/uL (3.29-11.43)
[2025-01-23 11:13] LABS: INR 1.21 (0.8-1.2)
[2025-01-23 12:47] LABS: Lactic Sepsis W/Reflex 1.2 mmol/L (0.5-2.2)
[2025-01-23 12:53] LABS: Procalcitonin 0.05 ng/mL (0-0.5)
--- NOTE | 2025-01-23 13:19 | USCV_ITS ---
Yara Suero Age: 84 Gender: F : 1940 Exam Date: 01/23/2025 14:15 Ordering Phys: Brian Shah MD Technologist: Tyler Lee Exam Location: [facility] [place] Indication: bioprosthetic mitral valve BP: 151 / 94 HR: 94 Rhythm: Atrial fibrillation Technical Quality: Adequate MEASUREMENTS (Male / Female) Normal Values 2D ECHO IVS Diastolic Thickness 1.4 cm 0.6 - 1.0 / 0.6 - 0.9 cm IVS Systolic Thickness 1.5 cm LVPW Diastolic Thickness 1.4 cm 0.6 - 1.0 / 0.6 - 0.9 cm LVOT Diameter 2.0 cm LV Ejection Fraction MOD 4C 64.9 % LV Ejection Fraction MOD 2C 64.3 % LV Ejection Fraction 2C AL 64.5 % LA Diameter 4.5 cm RA Systolic Volume 4C AL 44.1 ml RA Systolic Volume 4C MOD 44.1 ml LA Sys Volume AL 61.2 cm cubed LA Sys Volume Index AL 34.7 cm cubed/m squared Aorta at Sinotubular Diameter 2.2 cm IVC Diameter 1.3 cm M-MODE LA Ao Ratio MM 1.4 AV Cusp Separation MM 0.9 cm DOPPLER AV Peak Velocity 254.7 cm/s LVOT Peak Velocity 70.0 cm/s AV Area Cont Eq vti 1.1 cm squared AV Area Cont Eq pk 0.9 cm squared MV Peak Velocity 163.0 cm/s MV Area PHT 3.0 cm squared Mitral E to A Ratio 3.3 TV Peak Velocity 299.0 cm/s TR Peak Velocity 321.0 cm/s TR Peak Gradient 41.2 mmHg TR Mean Velocity 217.0 cm/s TR Mean Gradient 21.1 mmHg TR Velocity Time Integral 69.6 cm PV Peak Velocity 89.0 cm/s RV Ejection Time 0.2 s FINDINGS Left Ventricle Left ventricle is normal in size. LV systolic function is normal with EF of 55-60%. No regional wall motion abnomalities seen. Right Ventricle Grossly normal. Right Atrium Normal in size Left Atrium Normal in size Mitral Valve Bioprosthetic mitral valve. Mild mitral stenosis with mean gradient of 5.6mmHg. Mild mitral regurgitation Aortic Valve Aortic valve is thickened and calcified. Mild to moderate aortic stenosis. Aortic valve area of 1.06cm2 and mean gradient across aortic valve of 16mmHg. Trace aortic regurgitation. Tricuspid Valve Mild tricuspid regurgitation. RVSP is 40-45mmHg. Mild pulmonary hypertension Pulmonic Valve Mild pulmonic regurgitation Pericardium Normal Aorta Normal in size IVC Not well visualized CONCLUSIONS LV systolic function is normal with EF of 55-60% Normally functioning bioprosthetic aortic valve. Mild to moderate aortic stenosis Trace aortic regurgitation Mild tricuspid regurgitation Mild pulmonary hypertension. Mild pulmonic regurgitation Compared to prior echocardiogram from 2023 no significant changes are seen Moreno Brody MD (Electronically Signed) Final Date: 23 Jan 2025 22:18 S
[2025-01-23 13:38] LABS: Hematocrit 32.9 % (36-47)
[2025-01-23] MEDS: sodium chloride 0.9% 1,000 ML 50 ML IV (13:48)
[2025-01-23 14:00] LABS: Iron 76 ug/dL (37-145); Percent Saturation 31.6 % (20-50); Thyroid Stimulating Hormone 1.75 uIU/mL (0.27-4.20); Total Iron Binding Capacity 240 mcg/dl; Unsaturated Iron Binding 164 ug/dL (112-347); Vitamin B12 428 pg/mL (232-1245)
[2025-01-23] MEDS: pantoprazole 40 mg SDV 80 MG IVP (14:02)
[2025-01-23 14:04] LABS: Estmated Average Glucose 111; Hemoglobin A1C 5.5 % (4.0-6.0)
--- OUTSIDE RECORDS SUMMARY | 2025-01-23 14:05 | XMS_ITS | Clinical Summary ---
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
--- NOTE | 2025-01-23 14:51 | PC.NURSE ---
Patient arrived to ICU 10 at approximately 1320, patient is AOX4. See charted vitals. Per ER nurse, patient had blood clots in brief that was changed before transporting to ICU.
--- NOTE | 2025-01-23 15:17 | PM.HP ---
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 Denies any abdominal pain. When present to the ER patient was having active bleeding per rectum, became hypotensive and had presyncopal event. Central line was placed, she was ordered 2 unit of blood transfusion and given 1 unit and started on Levophed. Currently she has received 2 units of blood transfusion, post lead sigmoidoscopy in which multiple large clots were evacuated, on Levophed of 1, mean arterial pressure at 70 awake and alert denies any abdominal pain with son at bedside. Patient denies of having any similar events in the past or GI bleed in the past. Did have colonoscopy and endoscopy in the past which were reported normal. Review of Systems General: Reports: 10 or more systems reviewed and unremarkable except in HPI and below Const: Denies: fever(s), chills, body aches, change in appetite, change in weight, malaise, night sweats, diaphoresis, change in sleep pattern, daytime sleepiness or snoring Eyes: Denies: change in vision, blurry vision, photophobia, eye discomfort or eye discharge ENMT: Denies: throat pain, enlarged tonsils, hoarseness, mouth pain, oral sores, dry mouth, tinnitus, nasal congestion or post nasal drip Card: Denies: chest pain, palpitations, irregular heart rhythm, edema, swelling of feet/ankles, lightheadedness, syncope, pre-syncope, dyspnea on exertion, orthopnea, leg pain with exertion or acrocyanosis Resp: Denies: dyspnea, productive cough, non-productive cough, wheezing, stridor, pain on inspiration, change in phlegm color, hemoptysis or chest congestion GI: Denies: abdominal pain, nausea, vomiting, hematemesis, coffee ground emesis, dysphagia, heartburn, diarrhea, constipation, bloating, GI cramping, change in bowel habits, pain on defecation, hematochezia or melena : Denies: flank pain, dysuria, urinary frequency, urinary urgency, urinary hesitancy, nocturia or hematuria Musc: Denies: neck pain, back pain, extremity pain, joint pain, joint swelling, joint redness, joint stiffness or limited range of motion Neuro: Denies: headache(s), numbness in extremities, weakness in extremities, sensory changes, lack of coordination, difficulty walking, frequent falls, dizziness, vertigo, confusion, Slurred speech present, difficulty communicating thoughts or seizure-like activity Psych: Denies: anxiety, depression, mood swings, panic attacks, hopelessness or irritability Endo: Denies: polyuria, polydipsia, tired all the time, cold intolerance, excessive sweating, flushing or heat intolerance José/Lymph: Denies: easy bruising or easy bleeding All/Imm: Denies: tongue swelling, facial swelling or acute wheezing Medications/Allergies Home Medications ?Medication ?Instructions ?Recorded ?Confirmed ?Last Taken ?Type alprazolam 0.25 mg tablet 0.25 mg PO TID PRN anxiety #90 tabs 09/22/24 01/23/25 Unknown Rx tramadol 50 mg tablet 50 mg PO QID PRN pain #120 tabs 09/22/24 01/23/25 Unknown Rx furosemide 40 mg tablet 40 mg PO BID 01/23/25 01/23/25 01/22/25 History isosorbide mononitrate 30 mg 30 mg PO DAILY 01/23/25 01/23/25 01/22/25 History tablet,extended release 24 hr losartan 50 mg tablet 50 mg PO DAILY 01/23/25 01/23/25 01/22/25 History metoprolol tartrate 25 mg tablet 25 mg PO BID 01/23/25 01/23/25 01/22/25 History potassium chloride 20 mEq 20 meq PO DAILY 01/23/25 01/23/25 01/22/25 History tablet,extended release(part/cryst) trazodone 150 mg tablet 75 mg PO QPM 01/23/25 01/23/25 01/22/25 History warfarin 4 mg tablet 4 mg PO DAILY 01/23/25 01/23/25 01/22/25 History Allergies Allergy/AdvReac Type Severity Reaction Status Date / Time cephalexin (From Keflex) Allergy Sharad Verified 12/06/24 09:03 r Utpqsmy-YYL-EfM Reductase Allergy ADR-Insomni Verified 12/06/24 09:03 Inhibitor (Mrwnjmo-Xqk-Vwc a Reductase Inhibitor) Sulfa (Sulfonamide Allergy ALGY-Rash Verified 12/06/24 09:03 Antibiotics) cerivastatin (From Baycol) AdvReac Intermediate muscle pain Verified 12/06/24 09:03 hydrochlorothiazide AdvReac Intermediate rash Verified 12/06/24 09:03 pseudoephedrine (From AdvReac Intermediate palpitation Verified 12/06/24 09:03 Sudafed) s lisinopril AdvReac rash Verified 12/06/24 09:03 PFSH Acute PFSH: Medical History Allergic rhinitis due to allergen Anticoagulant long-term use CAD (coronary artery disease) Atrial fibrillation HTN (hypertension) CHF (congestive heart failure) Surgical History History of mitral valve replacement with bioprosthetic valve Family History Other CAD (coronary artery disease) Cancer Congestive heart failure (CHF) Myocardial infarction Social History Smoking and tobacco/nicotine status: unknown if used tobacco/nicotine Alcohol intake: never Vitals/I&O/Wt Last Vital Signs Temp 97.7 F 01/23/25 13:30 Pulse 102 H 01/23/25 14:16 Resp 22 H 01/23/25 13:30 BP 151/94 01/23/25 13:30 Pulse Ox 96 01/23/25 13:54 O2 Del Method Room Air 01/23/25 13:54 01/23/25 01/23/25 01/23/25 06:59 14:59 22:59 Intake Total 0 / 0 1585.875 / 1585.875 Balance 0 / 0 1585.875 / 1585.875 Weight last 48 hrs Weight 89.811 kg Weight 68.039 kg Physical Exam Narrative: General: No acute distress, AO x3, pallor present HEENT: PERRLA, pupils bilaterally equal and reactive Chest: Normal vesicular breath sounds, no added sounds, equal good air entry bilaterally CVS: S1-S2 regular, no murmurs, no tachycardia, no gallops, no rubs Abdomen: Soft, nontender, no organomegaly, bowel sounds present Neuro: No focal deficits, no facial deformity, AO x3, power 5/5 in all limbs Data 01/23/25 13:30 01/23/25 05:55 Micro: Microbiology 01/23/25 07:08 Blood Culture - Preliminary Blood SPECIMEN COLLECTED 01/23/25 07:10 Blood Culture - Preliminary Blood SPECIMEN COLLECTED A&P Assessment and plan (1) Hemorrhagic shock: (2) Lower GI bleed: (3) On Coumadin for atrial fibrillation: (4) Atrial fibrillation: (5) History of mitral valve replacement with bioprosthetic valve: (6) HTN (hypertension): (7) CAD (coronary artery disease): Plan 84-year-old female with past medical history of A-fib, bioprosthetic mitral valve on Coumadin for anticoagulation presents with lower GI bleeding and hemorrhagic shock. Hemorrhagic shock: In setting of lower GI bleed. Received total blood transfusion in the ER. Monitor hemoglobin every 6 hour. Target hemoglobin more than 8 or when patient is hemodynamically unstable. Transfuse accordingly. Check iron panel, vitamin B12, folate level. Keep mean at pressure 65. Wean Levophed accordingly. Hold off on antihypertensives including Imdur, losartan, metoprolol 25 mg twice daily. If able to wean off Levophed will start on IV metoprolol with holding parameters of systolic blood pressure of less than 110 mmHg, heart rate of less than 90 bpm. A-fib with RVR: Takes metoprolol 25 mg twice daily at home. Warfarin 4 mg oral daily at home. Warfarin reversed in the ER because of hemorrhagic shock with Kcentra and vitamin K and 1 unit of FFP. Appreciate repeat INR 1.2. Repeat INR daily. Hold off on Coumadin. Metoprolol as above. Lower GI bleed: Surgery on board. Post flex sigmoidoscopy. Multiple blood clots evacuated. Protonix 40 mg twice daily. Check iron panel, vitamin B12 and folate level. Bioprosthetic mitral valve: Repeat echocardiogram. Hypertension: Goal blood pressure less than 140/90 mmhg with mean over 65. Hold off on antihypertensive. Full code N.p.o. SCD for DVT prophylaxis Protonix for PUD prophylaxis Goals of care discussion: Discussed in detail with patient and patient's son at bedside. We discussed unfortunately patient has had significant GI bleed leading to hemorrhagic shock. Discussed first-line of treatment. In the situations if to reverse the INR, monitor hemodynamics and then colonoscopy to identify active site of bleeding and to control bleeding at that time. If hemoglobin does not remain stable then the plan would be to repeat CTA and possible need for IR embolization versus resection. Discussed plan for now would be to repeat hemoglobin in 45 minutes and extending down for repeat CTA. If there is any concern for bleeding, will transfer for tertiary center with colorectal surgery and IR embolization could be performed. Patient verbalized understanding and is agreeable to current plan. If hemoglobin remains stable we will plan to admit to ICU. PDMP PDMP Reviewed: Not Reviewed Attestations Medical Necessity Statement*: Admission for more than 2 midnights for management of hemorrhagic shock in setting of GI bleed, Coumadin anticoagulation post reversal for A-fib with RVR in a patient with bioprosthetic mitral valve Critical Care Time: The high probability of a clinically significant, sudden or life threatening deterioration of the patient's [GI, hematological, cardiac] system(s) required my full and direct attention, intervention and personal management. The critical care time is as shown. This time is in addition to time spent performing any reported procedures but includes the following: [x] Data and vital sign review and interpretation [x] Patient assessment, examination and intervention [x] Documentation [x] Medication orders and management Critical Care Time (min): 80 Coding Level of Care Code Critical Care >/= 30 minutes Critical care time (in minutes): 80 The high probability of a clinically significant, sudden or life threatening deterioration, as referenced in this documentation, required my full and direct attention, intervention and personal management. The critical care time shown is in addition to time spent performing any reported separately billable procedures and includes the following: [x] Data and vital sign review and interpretation [x] Patient assessment, examination and intervention [x] Medication orders and management [x] Patient/Family updates as able [x] Care Coordination and Documentation. Other Coding Information This patient has a high probability of clinically significant, sudden or life threatening deterioration of the patient's (neurological/pulmonary/cardiac/renal/ID/endocrine) systems required my full, direct attention, the highest level of physician preparedness for urgent intervention and personal management. I managed/supervised life or organ supporting interventions that required frequent physician assessment. I devoted my full attention in the ICU to the direct care of this patient for the period of time indicated above. Time I spent with family or surrogate(s) is included only if the patient was incapable of providing necessary information or participating in decision making. This time includes the following services provided: Telemetry review Hemodynamic interpretation, assessment and management Review and interpretation of CXR Review and interpretation of lab values Review and interpretation of microbiologic data and culture results Review of medications and administration Review and interpretation of Nutrition requirements and management Discussion of management with other consultants and services Clinical update to family members Diagnoses Hemorrhagic shock R57.8 Lower GI bleed K92.2 On Coumadin for atrial fibrillation I48.91; Z79.01 Atrial fibrillation I48.91 History of mitral valve replacement with bioprosthetic valve Z95.3 HTN (hypertension) I10 CAD (coronary artery disease) I25.10
[2025-01-23] MEDS: metoprolol tartrate 1 mg/1 mL SDV 5 mL 2.5 MG IVP (15:46)
--- NOTE | 2025-01-23 15:50 | ECG_ITS ---
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 Measurements Intervals [place] Rate: 106 P: 0 NV: 0 QRS: 30 QRSD: 108 T: 70 QT: 349 QTc: 464 Interpretive Statements ATRIAL FIBRILLATION WITH RAPID VENTRICULAR RESPONSE WITH ABERRANT CONDUCTION OR VENTRICULAR PREMATURE COMPLEXES INCOMPLETE RIGHT BUNDLE BRANCH BLOCK [90+ ms QRS DURATION, TERMINAL R IN V1/V2, 40+ ms S IN I/aVL/V4/V5/V6] ANTEROSEPTAL MYOCARDIAL INFARCTION , OF INDETERMINATE AGE [40+ ms Q WAVE IN V1-V4] Compared to ECG 05/06/2017 05:29:50 Ventricular premature complex(es) now present Aberrant conduction of supraventricular beat(s) now present Incomplete right bundle-branch block now present Ventricular-paced complex(es) or rhythm no longer present Electronically Signed On 01-24-2025 10:22:58 CDT by Moreno Brody M.D. [email or web address] [id number]
--- NOTE | 2025-01-23 17:31 | PC.NURSE ---
Patient stated she felt like she had a bowel movement, upon checking brief, large clots and some dark red colored stool noted. Dr. Shah notified via telephone and order received for STAT H+H as well as 1 unit blood on standby.
[2025-01-23] MEDS: peg /e-lyte soln 4,000 mL Btl 2000 ML PO (17:37)
[2025-01-23 18:09] LABS: Hematocrit 30.9 % (36-47)
[2025-01-23 18:20] LABS: INR 1.25 (0.8-1.2)
[2025-01-23 19:09] LABS: Hematocrit 29.8 % (36-47)
[2025-01-23] MEDS: trazodone 150 mg Tablet 75 MG PO (20:54)
[2025-01-24] VITALS (91 sets, daily range): BP systolic 103–163; BP diastolic 52–107; PULSE 85–123; RESP 14–28; TEMP 36.3–36.8; O2SAT 82–97
[2025-01-24 05:30] LABS: Basophils # 0.1 10^3/uL (0.0-0.1); Basophils % 0.6 %; Eosinophils # 0.1 10^3/uL (0.0-0.8); Eosinophils % 1.6 %; Hematocrit 27.7 % (36-47); Lymphocytes # 1.5 10^3/uL (0.8-4.8); Lymphocytes % 18.1 %; Mean Corpuscular HGB Conc 32.9 g/dL (30-55); Mean Corpuscular Hemoglobin 29.8 pg (27-33); Mean Corpuscular Volume 90.8 fl (85-98); Mean Platelet Volume 11.3 fL (7.4-10.4); Monocytes # 0.6 10^3/uL (0.2-0.9); Neutrophils # 5.81 10^3/uL (1.8-7.7); Neutrophils % 71.8 %; Nucleated Red Blood Cells % 0 %; Platelet Count 139 10^3/cmm (157-399); Red Blood Count 3.05 10^6/uL (3.85-5.65)
[2025-01-24 05:50] LABS: Alanine Aminotransferase 8 U/L (0-33); Alkaline Phosphatase 73 U/L (35-105); Anion Gap 15.5 (5-19); Aspartate Amino Transferase 14 U/L (0-32); Blood Urea Nitrogen 13 mg/dL (8-23); Calcium 8.7 mg/dL (8.5-10.5); Carbon Dioxide 21 mmol/L (22-29); Chloride 109 mmol/L (98-107); Chol HDL Ratio 4.41 mg/dL (0.0-4.40); Cholesterol 141 mg/dL (0-200); Globulin 2.2 g/dL (1.3-4.6); Glucose 98 mg/dL (65-115); HDL Cholesterol 32 mg/dL (60-100); LDL Cholesterol Calculated 90 mg/dL (50-129); LDL HDL Ratio 2.81 RATIO (0.00-3.22); Magnesium 1.9 mg/dL (1.7-2.3); Osmolality Calculated 294 mOsm/kg (285-295); Phosphorus 2.2 mg/dL (2.5-4.5); Potassium 3.5 mmol/L (3.5-5.1); Sodium 142 mmol/L (136-145); Total Bilirubin 1.5 mg/dL (0.15-1.2); Total Protein 5.2 g/dL (6.6-8.7); Triglycerides 96 mg/dL (0-150)
[2025-01-24 05:56] LABS: Procalcitonin 0.06 ng/mL (0-0.5)
[2025-01-24] MEDS: piperacillin-tazobactam 3.375 GM in sodium chloride 0.9% (plus) 50 ML IV ×3 (06:11→23:44)
--- NOTE | 2025-01-24 08:56 | P.PN_ITS ---
Subjective 2 Subjective: I taking over the care of this patient as Dr. Desai is leaving [facility]. She is a disease presented with acute lower GI bleeding. Endoscopy yesterday was unable to pass the sigmoid colon, she received bowel prep overnight and has remained stable. Vitals/I&O/Wt Last Vital Signs Temp 98.1 F 01/24/25 06:26 Pulse 98 01/24/25 04:30 Resp 14 01/24/25 04:30 BP 120/70 01/24/25 04:30 Pulse Ox 95 01/24/25 04:30 O2 Del Method Room Air 01/23/25 16:05 01/23/25 01/24/25 01/24/25 22:59 06:59 14:59 Intake Total 889.687 / 2475.562 50 / 2525.562 Output Total 0 / 0 Balance 889.687 / 2475.562 50 / 2525.562 Weight last 48 hrs Weight 199 lb 8.293 oz Weight 198 lb Weight 150 lb Physical Exam 2 GI: OTHER: Abdomen is soft nontender nondistended. Data 01/24/25 04:48 01/24/25 04:48 Micro: Microbiology 01/23/25 07:10 Blood Culture - Preliminary Blood NEGATIVE TO DATE 01/23/25 07:08 Blood Culture - Preliminary Blood NEGATIVE TO DATE A&P Assessment and plan (1) GI bleeding: (2) Lower GI bleed: Plan Patient with acute lower GI bleeding, bleeding located in the ascending colon. Most likely cause of bleeding will be angiectasia or vascular malformation at the level of the ascending colon. Since patient has already received bowel prep I am agreeable to proceed with lower endoscopy for evaluation. In the case of confirmation of GI bleeding due to abnormal blood vessels she most likely will require transfer to high-level care for evaluation by GI for ablation versus embolization by interventional radiology. A I have discussed all the risks and benefits of the colonoscopy. Including, the risk of perforation requiring surgical intervention and ostomy creation, rectal bleeding, incomplete colonoscopy in one of every 20 patients requiring repat endoscopy, missed polyps, need for additional procedures. Patient shows understanding and wishes to proceed. I have also informed the patient that I will not proceed with polypectomy unless I see bleeding from a polyp due to her history of recent anticoagulation. PDMP PDMP Reviewed: Not Reviewed Attestations 2 Medical Necessity Statement*: Per medical team Coding Level of Care Code Acute Code for Chg Fwd Diagnoses GI bleeding K92.2 Lower GI bleed K92.2
--- NOTE | 2025-01-24 09:56 | ANES.PREANE2 ---
Pre-Anesthetic Assessment Height/Weight: Height 5 ft 4 in Weight 199 lb 8.293 oz Temp Pulse Resp BP Pulse Ox O2 Del Method 98.1 F 98 14 120/70 95 Room Air 01/24/25 06:26 01/24/25 04:30 01/24/25 04:30 01/24/25 04:30 01/24/25 04:30 01/23/25 16:05 Preop Diagnosis: GI bleed Operation Date: 01/23/25 09:30 Proposed Procedures p Sigmoidoscopy(Not Applicable) - Dawson Bartholomew MD Operation Date: 01/24/25 11:00 Proposed Procedures p Colonoscopy(Not Applicable) - Rj Beckman MD Was Beta Babs taken within 24 hours: Yes Was Clonidine taken within 24 hours: N/A Social No alcohol and No tobacco Exam alert, oriented x 3 and clear to auscultation bilaterally ejection murmur Airway Submandibular: within normal limits Cervical ROM: within normal limits Mallampati: Class III Comments: Comments: Only a few bottom teeth left, denies any loose Anesthetic Plan ASA status: 3 Anesthesia: MAC Other: No prior issues with anesthesia NPO since yesterday evening, completed bowel prep Patient initially admitted 01/23/2025 for hemorrhagic shock with GI bleed Flexible sigmoidoscopy performed and EGD [place]. Patient received multiple units of PRBCs and FFP Patient is on chronic Coumadin for A-fib. INR 1.25 today History of hypertension on losartan and metoprolol Prior CAD history, echo showing EF 55 to 60%. Patient has a bioprosthetic mitral valve Plan for MAC anesthesia Medications/Allergies Home Medications ?Medication ?Instructions ?Recorded ?Confirmed ?Last Taken ?Type alprazolam 0.25 mg tablet 0.25 mg PO TID PRN anxiety #90 tabs 09/22/24 01/23/25 Unknown Rx tramadol 50 mg tablet 50 mg PO QID PRN pain #120 tabs 09/22/24 01/23/25 Unknown Rx furosemide 40 mg tablet 40 mg PO BID 01/23/25 01/23/25 01/22/25 History isosorbide mononitrate 30 mg 30 mg PO DAILY 01/23/25 01/23/25 01/22/25 History tablet,extended release 24 hr losartan 50 mg tablet 50 mg PO DAILY 01/23/25 01/23/25 01/22/25 History metoprolol tartrate 25 mg tablet 25 mg PO BID 01/23/25 01/23/25 01/22/25 History potassium chloride 20 mEq 20 meq PO DAILY 01/23/25 01/23/25 01/22/25 History tablet,extended release(part/cryst) trazodone 150 mg tablet 75 mg PO QPM 01/23/25 01/23/25 01/22/25 History warfarin 4 mg tablet 4 mg PO DAILY 01/23/25 01/23/25 01/22/25 History Allergies Allergy/AdvReac Type Severity Reaction Status Date / Time cephalexin (From Keflex) Allergy ALGY-Bliste Verified 12/06/24 09:03 r Nmegplc-YMT-BiU Reductase Allergy ADR-Insomni Verified 12/06/24 09:03 Inhibitor (Gqmvxuf-Iej-Gtm a Reductase Inhibitor) Sulfa (Sulfonamide Allergy ALGY-Rash Verified 12/06/24 09:03 Antibiotics) cerivastatin (From Baycol) AdvReac Intermediate muscle pain Verified 12/06/24 09:03 hydrochlorothiazide AdvReac Intermediate rash Verified 12/06/24 09:03 pseudoephedrine (From AdvReac Intermediate palpitation Verified 12/06/24 09:03 Sudafed) s lisinopril AdvReac rash Verified 12/06/24 09:03 Current Medications Generic Name Dose Route Start Last Admin Trade Name Freq PRN Reason Stop Dose Admin Norepinephrine Bitartrate 4 mg in 250 mls @ 0 mls/hr 01/23/25 08:15 01/23/25 19:30 Levophed IV 0 mcg/min .Q0M HIREN 0 mls/hr Protocol Titration Per Protocol Sodium Chloride 1,000 mls @ 50 mls/hr 01/23/25 13:19 01/23/25 13:48 Sodium Chloride 0.9% IV 50 mls/hr .Q20H HIREN Administration Piperacillin Sod/Tazobactam 50 mls @ 12.5 mls/hr 01/23/25 15:00 01/24/25 06:11 Sod 3.375 gm/ Sodium Chloride IV 12.5 mls/hr Q8H HIREN Administration Trazodone HCl 75 mg 01/23/25 20:00 01/23/25 20:54 Trazodone 150 Mg Tablet PO 75 mg QPM HIREN Administration [facility] Anesthesia Medical History Allergic rhinitis due to allergen Anticoagulant long-term use CAD (coronary artery disease) Atrial fibrillation HTN (hypertension) CHF (congestive heart failure) Surgical History History of mitral valve replacement with bioprosthetic valve Family History Other CAD (coronary artery disease) Cancer Congestive heart failure (CHF) Myocardial infarction Social History Smoking and tobacco/nicotine status: unknown if used tobacco/nicotine Alcohol intake: never Data Anesthesia 01/24/25 04:48 01/24/25 04:48 Short CBC 01/23/25 01/23/25 01/23/25 Range/Units 05:55 08:40 10:57 WBC 9.15 10.31 (3.29-11.43) 10^3/uL Hgb 12.50 9.90 L 11.60 (11.27-16.99) g/dL Hct 38.6 31.1 L 36.6 (36-47) % MCV 93.2 95.1 (85-98) fl Plt Count 242 174 (157-399) 10^3/cmm Neut % (Auto) 56.9 82.1 % Neut # (Auto) 5.20 8.47 H (1.8-7.7) 10^3/uL 01/23/25 01/23/25 01/23/25 Range/Units 13:30 17:56 19:05 WBC (3.29-11.43) 10^3/uL Hgb 10.90 L 10.10 L 10.00 L (11.27-16.99) g/dL Hct 32.9 L 30.9 L 29.8 L (36-47) % MCV (85-98) fl Plt Count (157-399) 10^3/cmm Neut % (Auto) % Neut # (Auto) (1.8-7.7) 10^3/uL 01/24/25 01/24/25 Range/Units 00:52 04:48 WBC 8.10 (3.29-11.43) 10^3/uL Hgb 9.70 L 9.10 L (11.27-16.99) g/dL Hct 29.0 L 27.7 L (36-47) % MCV 90.8 (85-98) fl Plt Count 139 L (157-399) 10^3/cmm Neut % (Auto) 71.8 % Neut # (Auto) 5.81 (1.8-7.7) 10^3/uL BMP 01/23/25 01/24/25 05:55 04:48 Sodium 140 142 Potassium 3.7 3.5 Chloride 105 109 H Carbon Dioxide 22 21 L BUN 21 13 Creatinine 1.0 H 0.9 Glucose 139 H 98 Calcium 9.1 8.7 Liver Function 01/23/25 01/24/25 Range/Units 05:55 04:48 Total Bilirubin 0.8 1.5 H (0.15-1.2) mg/dL AST 13 14 (0-32) U/L ALT 10 8 (0-33) U/L Alkaline Phosphatase 101 73 (35-105) U/L Albumin 3.8 3.0 L (3.5-5.2) g/dL Urine 01/23/25 Range/Units 07:31 Urine Color Yellow (Yellow) Urine Appearance Clear (CLEAR) Urine pH 5 (5-7) Ur Specific Carrier 1.015 (1.005-1.030) Urine Protein 2+ H (Negative) Urine Glucose (UA) Norm (Normal) Urine Ketones Negative (Negative) Urine Nitrate Negative (Negative) Urine Bilirubin Neg (Negative) Ur Leukocyte Esterase Negative (Negative) Urine RBC Rare (0-2) /hpf Urine WBC Rare (0-5) /hpf Blood Bank 01/23/25 05:55 Blood Type O Negative Rho(D) Type Rh negative Antibody Screen Negative Coags 01/23/25 01/23/25 01/23/25 05:55 09:40 10:57 PT 25.50 H 16.00 H D 16.10 H INR 2.17 H 1.20 1.21 H APTT 57.2 H C-Reactive Protein 3.6 01/23/25 17:56 PT 16.50 H INR 1.25 H APTT C-Reactive Protein Microbiology 01/23/25 07:10 Blood Culture - Preliminary Blood NEGATIVE TO DATE 01/23/25 07:08 Blood Culture - Preliminary Blood NEGATIVE TO DATE Cardiac Studies: Echocardiogram 01/23/25
[2025-01-24] MEDS: pantoprazole 40 mg SDV IVP ×2 (10:05→21:25)
--- NOTE | 2025-01-24 10:40 | PM.MISC ---
Miscellaneous Note Purpose of Documentation: Update on patientCare Note: Lower endoscopy was done this morning, the quality of the preparation was excellent, there was no residual blood in the prep or in the colon. There was diverticulosis in the sigmoid colon. At the level of the blushing on imaging there is no evidence of residual bleeding or active bleeding. There were several engorged blood vessels at the level of the ascending colon and cecum but none of them appear to be bleeding or require intervention. Patient diet can be advanced as tolerated. In the case of rebleeding transfer to higher level of care is recommended for possible IR embolization versus ablation of those blood vessels.
--- NOTE | 2025-01-24 10:55 | ANE.PACU2 ---
Inpatient post-anesthesia follow up: Airway intact: Yes Vital signs: Temperature 98.2 F Pulse Rate 103 Respiratory Rate 21 Blood Pressure 135/83 Pulse Oximetry 92 Oxygen Delivery Me thod Room Air Oxygen Flow Rate Fraction of Inspir ed Oxygen Hydration adequate: Yes Nausea and vomiting: No Pain level: 1 Mental status: Baseline
--- NOTE | 2025-01-24 15:10 | PC.NURSE ---
family notified on pt's transfer talked to joshua and josé miguelyify her on pt's transfer to [facility]
--- NOTE | 2025-01-24 16:23 | P.PN_ITS ---
Subjective 2 Subjective: s/p colonoscopy denies abdominal pain family at bedside Vitals/I&O/Wt Last Vital Signs Temp 97.3 F L 01/24/25 12:45 Pulse 115 H 01/24/25 14:00 Resp 17 01/24/25 13:45 BP 118/99 01/24/25 13:45 Pulse Ox 87 L 01/24/25 13:45 O2 Del Method Room Air 01/24/25 12:45 01/24/25 01/24/25 01/24/25 06:59 14:59 22:59 Intake Total 50 / 2525.562 1039.375 / 1039.375 10 1049.375 Output Total 0 / 0 Balance 50 / 2525.562 1039.375 / 1039.375 10 9.375 Weight last 48 hrs Weight 199 lb 8.293 oz Weight 198 lb Weight 150 lb Physical Exam 2 Narrative: General: No acute distress, AO x3, pallor present HEENT: PERRLA, pupils bilaterally equal and reactive Chest: Normal vesicular breath sounds, no added sounds, equal good air entry bilaterally CVS: S1-S2 regular, no murmurs, no tachycardia, no gallops, no rubs Abdomen: Soft, nontender, no organomegaly, bowel sounds present Neuro: No focal deficits, no facial deformity, AO x3, power 5/5 in all limbs Data 01/24/25 04:48 01/24/25 04:48 Micro: Microbiology 01/23/25 07:10 Blood Culture - Preliminary Blood NEGATIVE TO DATE 01/23/25 07:08 Blood Culture - Preliminary Blood NEGATIVE TO DATE A&P Assessment and plan (1) Lower GI bleed: (2) On Coumadin for atrial fibrillation: (3) Anticoagulant long-term use: (4) Atrial fibrillation: (5) CAD (coronary artery disease): (6) HTN (hypertension): Plan 84-year-old female with past medical history of A-fib, bioprosthetic mitral valve on Coumadin for anticoagulation presents with lower GI bleeding and hemorrhagic shock. Hemorrhagic shock: In setting of lower GI bleed. Received total blood transfusion in the ER. s/p EGD, colonoscopy PPI diet advanced A-fib with RVR: Takes metoprolol 25 mg twice daily at home. Warfarin 4 mg oral daily at home. Warfarin reversed in the ER because of hemorrhagic shock with Kcentra and vitamin K and 1 unit of FFP. Appreciate repeat INR 1.2. Repeat INR daily. Hold off on Coumadin. Metoprolol as above. we may consider restarting coumadin soon Bioprosthetic mitral valve: Repeat echocardiogram. Hypertension: Goal blood pressure less than 140/90 mmhg with mean over 65. Hold off on antihypertensive. Full code SCD for DVT prophylaxis Protonix for PUD prophylaxis PDMP PDMP Reviewed: Not Reviewed Attestations 2 Medical Necessity Statement*: GI Bleed Coding Level of Care Code Acute Code for Chg Fwd Diagnoses Lower GI bleed K92.2 On Coumadin for atrial fibrillation I48.91; Z79.01 Anticoagulant long-term use Z79.01 Atrial fibrillation I48.91 CAD (coronary artery disease) I25.10 HTN (hypertension) I10
[2025-01-24] MEDS: trazodone 150 mg Tablet 75 MG PO (18:39)
[2025-01-24] MEDS: ALPRAZolam 0.5 mg Tablet 0.25 MG PO (21:34)
[2025-01-25] VITALS (7 sets, daily range): BP systolic 107–150; BP diastolic 70–93; PULSE 81–122; RESP 12–41; TEMP 36.6–36.9; O2SAT 93–95
[2025-01-25 05:36] LABS: Basophils % 0.5 %; Eosinophils # 0.2 10^3/uL (0.0-0.8); Eosinophils % 3.2 %; Hematocrit 26.7 % (36-47); Lymphocytes # 1.7 10^3/uL (0.8-4.8); Lymphocytes % 22.7 %; Mean Corpuscular Hemoglobin 30.9 pg (27-33); Mean Corpuscular Volume 93.7 fl (85-98); Mean Platelet Volume 11.4 fL (7.4-10.4); Monocytes # 0.6 10^3/uL (0.2-0.9); Monocytes % 7.5 %; Neutrophils # 4.93 10^3/uL (1.8-7.7); Nucleated Red Blood Cells % 0 %; Platelet Count 144 10^3/cmm (157-399); Red Blood Count 2.85 10^6/uL (3.85-5.65); Red Cell Distribution Width 14.9 % (12.1-15.1); White Blood Count 7.58 10^3/uL (3.29-11.43)
[2025-01-25 05:59] LABS: Alanine Aminotransferase 8 U/L (0-33); Alkaline Phosphatase 78 U/L (35-105); Anion Gap 11.6 (5-19); Aspartate Amino Transferase 15 U/L (0-32); Blood Urea Nitrogen 8 mg/dL (8-23); Calcium 8.5 mg/dL (8.5-10.5); Carbon Dioxide 22 mmol/L (22-29); Chloride 113 mmol/L (98-107); Creatinine Clr Calc Pharmacy 48.8098; Globulin 2.4 g/dL (1.3-4.6); Glucose 108 mg/dL (65-115); Magnesium 1.9 mg/dL (1.7-2.3); Osmolality Calculated 295 mOsm/kg (285-295); Phosphorus 2.1 mg/dL (2.5-4.5); Potassium 3.6 mmol/L (3.5-5.1); Sodium 143 mmol/L (136-145); Total Bilirubin 0.9 mg/dL (0.15-1.2); Total Protein 5.4 g/dL (6.6-8.7)
[2025-01-25] MEDS: piperacillin-tazobactam 3.375 GM in sodium chloride 0.9% (plus) 50 ML IV ×3 (06:05→23:44)
[2025-01-25] MEDS: metoprolol tartrate 1 mg/1 mL SDV 5 mL 2.5 MG IVP (08:40)
[2025-01-25] MEDS: pantoprazole 40 mg SDV IVP ×2 (08:41→20:26)
--- NOTE | 2025-01-25 13:10 | P.PN_ITS ---
Subjective 2 Subjective: diet advanced denies abdominal pain hgb stable mild tachycardia Vitals/I&O/Wt Last Vital Signs Temp 97.8 F 01/25/25 12:00 Pulse 103 H 01/25/25 12:00 Resp 22 H 01/25/25 12:00 BP 118/75 01/25/25 12:00 Pulse Ox 94 01/25/25 12:00 O2 Del Method Nasal Cannula 01/25/25 12:00 01/24/25 01/25/25 01/25/25 22:59 06:59 14:59 Intake Total 660 / 1699.375 450 / 2149.375 290 / 290 Balance 660 / 1699.375 450 / 2149.375 290 / 290 Weight last 48 hrs Weight 198 lb 14.4 oz Weight 199 lb 8.293 oz Weight 198 lb Physical Exam 2 Narrative: General: No acute distress, AO x3, pallor present HEENT: PERRLA, pupils bilaterally equal and reactive Chest: Normal vesicular breath sounds, no added sounds, equal good air entry bilaterally CVS: S1-S2 regular, no murmurs, no tachycardia, no gallops, no rubs Abdomen: Soft, nontender, no organomegaly, bowel sounds present Neuro: No focal deficits, no facial deformity, AO x3, power 5/5 in all limbs Data 01/25/25 04:44 01/25/25 04:44 A&P Assessment and plan (1) Lower GI bleed: (2) On Coumadin for atrial fibrillation: (3) Anticoagulant long-term use: (4) Atrial fibrillation: (5) CAD (coronary artery disease): (6) HTN (hypertension): Plan 84-year-old female with past medical history of A-fib, bioprosthetic mitral valve on Coumadin for anticoagulation presents with lower GI bleeding and hemorrhagic shock. Hemorrhagic shock: In setting of lower GI bleed. Received total blood transfusion in the ER. s/p EGD, colonoscopy PPI diet advanced A-fib with RVR: Takes metoprolol 25 mg twice daily at home. Warfarin 4 mg oral daily at home. Warfarin reversed in the ER because of hemorrhagic shock with Kcentra and vitamin K and 1 unit of FFP. Appreciate repeat INR 1.2. Repeat INR daily. Hold off on Coumadin. Metoprolol as above. we may consider restarting coumadin soon will watch overnight, likely start in AM Bioprosthetic mitral valve: Repeat echocardiogram. Hypertension: Goal blood pressure less than 140/90 mmhg with mean over 65. Hold off on antihypertensive. Full code dispo: DC in AM SCD for DVT prophylaxis Protonix for PUD prophylaxis PDMP PDMP Reviewed: Not Reviewed Attestations 2 Medical Necessity Statement*: advancing diet, monitoring HR and labs Coding Level of Care Code 05329 Diagnoses Lower GI bleed K92.2 On Coumadin for atrial fibrillation I48.91; Z79.01 Anticoagulant long-term use Z79.01 Atrial fibrillation I48.91 CAD (coronary artery disease) I25.10 HTN (hypertension) I10
--- NOTE | 2025-01-25 18:27 | P.PN_ITS ---
Subjective 2 Subjective: Excellent progression over the last 24 hours, no further GI bleeding and hemoglobin stable. She is tolerating diet. Vitals/I&O/Wt Last Vital Signs Temp 97.8 F 01/25/25 12:00 Pulse 93 01/25/25 16:00 Resp 17 01/25/25 16:00 BP 124/70 01/25/25 16:00 Pulse Ox 94 01/25/25 16:00 O2 Del Method Nasal Cannula 01/25/25 16:00 01/25/25 01/25/25 01/25/25 06:59 14:59 22:59 Intake Total 450 / 2149.375 650 / 650 Balance 450 / 2149.375 650 / 650 Weight last 48 hrs Weight 198 lb 14.4 oz Weight 199 lb 8.293 oz Physical Exam 2 GI: OTHER: Abdomen soft nontender nondistended Data 01/25/25 04:44 01/25/25 04:44 A&P Assessment and plan (1) GI bleeding: (2) Lower GI bleed: Plan Excellent progression over the last 24 hours. Tolerating cardiac diet. No further need for surgical interventions. Follow-up as needed. In the case of rebleeding patient will require a GI evaluation. PDMP PDMP Reviewed: Not Reviewed Attestations 2 Medical Necessity Statement*: Per medical team Coding Level of Care Code Acute Code for Chg Fwd Diagnoses GI bleeding K92.2 Lower GI bleed K92.2
[2025-01-25] MEDS: trazodone 150 mg Tablet 75 MG PO (20:26)
[2025-01-26] VITALS: BP 110/63; PULSE 105; RESP 15; TEMP 36.7; O2SAT 95
[2025-01-26 02:46] LABS: Basophils % 0.3 %; Eosinophils # 0.3 10^3/uL (0.0-0.8); Eosinophils % 3.5 %; Hematocrit 25.1 % (36-47); Lymphocytes # 1.7 10^3/uL (0.8-4.8); Lymphocytes % 23.5 %; Mean Corpuscular HGB Conc 32.7 g/dL (30-55); Mean Corpuscular Hemoglobin 30.9 pg (27-33); Mean Corpuscular Volume 94.7 fl (85-98); Monocytes # 0.6 10^3/uL (0.2-0.9); Neutrophils # 4.67 10^3/uL (1.8-7.7); Neutrophils % 63.3 %; Nucleated Red Blood Cells % 0 %; Platelet Count 151 10^3/cmm (157-399); Red Blood Count 2.65 10^6/uL (3.85-5.65); Red Cell Distribution Width 14.9 % (12.1-15.1); White Blood Count 7.37 10^3/uL (3.29-11.43)
[2025-01-26 03:17] LABS: Alanine Aminotransferase 9 U/L (0-33); Albumin Level 2.9 g/dL (3.5-5.2); Alkaline Phosphatase 74 U/L (35-105); Anion Gap 10.7 (5-19); Aspartate Amino Transferase 13 U/L (0-32); Blood Urea Nitrogen 10 mg/dL (8-23); Calcium 8.8 mg/dL (8.5-10.5); Carbon Dioxide 23 mmol/L (22-29); Chloride 114 mmol/L (98-107); Creatinine Clr Calc Pharmacy 43.9289; Globulin 2.4 g/dL (1.3-4.6); Glucose 121 mg/dL (65-115); Magnesium 1.9 mg/dL (1.7-2.3); Osmolality Calculated 298 mOsm/kg (285-295); Phosphorus 2.7 mg/dL (2.5-4.5); Potassium 3.7 mmol/L (3.5-5.1); Sodium 144 mmol/L (136-145); Total Bilirubin 0.5 mg/dL (0.15-1.2); Total Protein 5.3 g/dL (6.6-8.7)
[2025-01-26 04:00] VITALS: BP 114/86; PULSE 106; RESP 29; TEMP 36.5; O2SAT 92
[2025-01-26] MEDS: piperacillin-tazobactam 3.375 GM in sodium chloride 0.9% (plus) 50 ML IV ×3 (05:44→22:47)
[2025-01-26 08:00] VITALS: BP 135/95; PULSE 122; RESP 20; TEMP 37.1; O2SAT 93
[2025-01-26] MEDS: pantoprazole 40 mg SDV IVP ×2 (08:27→20:12)
[2025-01-26] MEDS: metoprolol tartrate 1 mg/1 mL SDV 5 mL 2.5 MG IVP ×2 (08:40→22:48)
--- NOTE | 2025-01-26 11:12 | P.PN_ITS ---
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 Surgery was consulted. EGD colonoscopy done. Her hemoglobin has remained stable. She did receive blood transfusion earlier in her hospitalization. Today she reports that she feels okay. She states that she has not gotten up too frequently. Her hemoglobin has been stable. She is hoping to go home in the near future. Vitals/I&O/Wt Last Vital Signs Temp 98.7 F 01/26/25 08:00 Pulse 122 H 01/26/25 08:00 Resp 20 H 01/26/25 08:00 BP 135/95 01/26/25 08:00 Pulse Ox 93 01/26/25 08:00 O2 Del Method Room Air 01/26/25 08:00 01/25/25 01/26/25 01/26/25 22:59 06:59 14:59 Intake Total 730 / 1380 150 / 1530 410 / 410 Balance 730 / 1380 150 / 1530 410 / 410 Weight last 48 hrs Weight 206 lb Weight 198 lb 14.4 oz Physical Exam 2 Narrative: General: No acute distress, AO x3, pallor present HEENT: PERRLA, pupils bilaterally equal and reactive Chest: Normal vesicular breath sounds, no added sounds, equal good air entry bilaterally CVS: S1-S2 regular, no murmurs, no tachycardia, no gallops, no rubs Abdomen: Soft, nontender, no organomegaly, bowel sounds present Neuro: No focal deficits, no facial deformity, AO x3, power 5/5 in all limbs Data 01/26/25 02:26 01/26/25 02:26 A&P Assessment and plan (1) Lower GI bleed: (2) Hemorrhagic shock: (3) CAD (coronary artery disease): (4) Atrial fibrillation: (5) History of mitral valve replacement with bioprosthetic valve: Plan (1) Lower GI bleed: (2) On Coumadin for atrial fibrillation: (3) Anticoagulant long-term use: (4) Atrial fibrillation: (5) CAD (coronary artery disease): (6) HTN (hypertension): Plan 84-year-old female with past medical history of A-fib, bioprosthetic mitral valve on Coumadin for anticoagulation presents with lower GI bleeding and hemorrhagic shock. Hemorrhagic shock: In setting of lower GI bleed. Received total blood transfusion in the ER. s/p EGD, colonoscopy PPI diet advanced A-fib with RVR: Takes metoprolol 25 mg twice daily at home. Warfarin 4 mg oral daily at home. Warfarin reversed in the ER because of hemorrhagic shock with Kcentra and vitamin K and 1 unit of FFP. Appreciate repeat INR 1.2. Repeat INR daily.Metoprolol as above. pharm consult, restart coumadin lovenox Bioprosthetic mitral valve: Repeat echocardiogram. will need to ambulate Hypertension: Goal blood pressure less than 140/90 mmhg with mean over 65. Hold off on antihypertensive. Full code dispo: DC soon SCD for DVT prophylaxis Protonix for PUD prophylaxis PDMP PDMP Reviewed: Not Reviewed Attestations 2 Medical Necessity Statement*: restart coumadin, monitor blood counts, PT eval Coding Level of Care Code 86353 Diagnoses Lower GI bleed K92.2 Hemorrhagic shock R57.8 CAD (coronary artery disease) I25.10 Atrial fibrillation I48.91 History of mitral valve replacement with bioprosthetic valve Z95.3
--- NOTE | 2025-01-26 11:28 | PC.SOCIAL ---
IMM Updated Updated pt on IMM. No questions voiced. Provided pt a copy. Initialed, dated, & timed a copy & placed in chart.
[2025-01-26 12:00] VITALS: BP 108/89; PULSE 20; RESP 28; TEMP 36.5; O2SAT 95
[2025-01-26] MEDS: enoxaparin 100 mg/mL Syringe 90 MG SUBCUT ×2 (12:25→22:58)
[2025-01-26] MEDS: warfarin 4 mg Tablet PO (14:53)
[2025-01-26 16:00] VITALS: BP 124/87; PULSE 104; RESP 18; TEMP 37.1; O2SAT 95
[2025-01-26 19:06] VITALS: BP 106/63; PULSE 107; RESP 23; TEMP 36.6; O2SAT 100
[2025-01-26] MEDS: trazodone 150 mg Tablet 75 MG PO (20:12)
[2025-01-27] VITALS (9 sets, daily range): BP systolic 113–123; BP diastolic 69–83; PULSE 70–107; RESP 17–27; TEMP 36.5–37.3; O2SAT 88–98
[2025-01-27] MEDS: ALPRAZolam 0.5 mg Tablet 0.25 MG PO ×3 (01:40→23:51)
[2025-01-27 05:14] LABS: INR 1.15 (0.8-1.2)
[2025-01-27] MEDS: pantoprazole 40 mg SDV IVP (08:36)
[2025-01-27] MEDS: TRAMadol 50 mg Tablet PO (08:36)
[2025-01-27] MEDS: piperacillin-tazobactam 3.375 GM in sodium chloride 0.9% (plus) 50 ML IV ×3 (08:36→23:51)
[2025-01-27] MEDS: metoprolol tartrate 1 mg/1 mL SDV 5 mL 2.5 MG IVP (08:37)
[2025-01-27] MEDS: diphenhydrAMINE 25 mg Capsule PO (10:13)
[2025-01-27] MEDS: metoprolol tartrate 25 mg Tablet PO ×2 (10:13→17:32)
--- NOTE | 2025-01-27 10:27 | P.PN_ITS ---
Subjective 2 Subjective: No acute events overnight. Patient seen at the bedside and she has no new complaints. Vitals/I&O/Wt Last Vital Signs Temp 97.7 F 01/27/25 03:37 Pulse 99 01/27/25 06:34 Resp 27 H 01/27/25 06:34 BP 120/79 01/27/25 06:34 Pulse Ox 94 01/27/25 06:34 O2 Del Method Room Air 01/27/25 03:37 01/26/25 01/27/25 01/27/25 22:59 06:59 14:59 Intake Total 390 / 1040 470 / 1510 Balance 390 / 1040 470 / 1510 Weight last 48 hrs Weight 91.852 kg Weight 93.44 kg Physical Exam 2 Narrative: General: Awake, alert, no acute distress HEENT: PERRLA, pupils bilaterally equal and reactive Chest: Clear to auscultation bilaterally, no wheezes or crackles CVS: S1-S2 regular, no murmurs, no tachycardia, no gallops, no rubs Abdomen: Soft, nontender, no organomegaly, bowel sounds present Neuro: No focal deficits, no facial deformity, AO x3, power 5/5 in all limbs Data 01/26/25 02:26 01/26/25 02:26 A&P Assessment and plan (1) Lower GI bleed: (2) Hemorrhagic shock: (3) CAD (coronary artery disease): (4) Atrial fibrillation: (5) History of mitral valve replacement with bioprosthetic valve: Plan (1) Lower GI bleed: (2) On Coumadin for atrial fibrillation: (3) Anticoagulant long-term use: (4) Atrial fibrillation: (5) CAD (coronary artery disease): (6) HTN (hypertension): Plan 84-year-old female with past medical history of A-fib, bioprosthetic mitral valve on Coumadin for anticoagulation presented with lower GI bleeding and hemorrhagic shock. #Hemorrhagic shock - In setting of lower GI bleed. -Received total blood transfusion in the ER. -Colonoscopy did not show any active bleeding sites -Hemoglobin is stable -Continue Protonix, switch to p.o. - Continue to monitor #A-fib with RVR - Resume metoprolol -Warfarin reversed in the ER because of hemorrhagic shock with Kcentra and vitamin K and 1 unit of FFP. -Continue warfarin with Lovenox bridge -Monitor INR Bioprosthetic mitral valve: -Echo showed normal EF, normal functioning bioprosthetic valve #Hypertension - Can resume antihypertensives Full code dispo: DC soon SCD for DVT prophylaxis Protonix for PUD prophylaxis PDMP PDMP Reviewed: Not Reviewed Attestations 2 Medical Necessity Statement*: Patient to continue Coumadin with Lovenox , monitor blood counts. Possible discharge tomorrow Coding Level of Care Code Acute Code for Chg Fwd Diagnoses Lower GI bleed K92.2 Hemorrhagic shock R57.8 CAD (coronary artery disease) I25.10 Atrial fibrillation I48.91 History of mitral valve replacement with bioprosthetic valve Z95.3
[2025-01-27] MEDS: enoxaparin 100 mg/mL Syringe 90 MG SUBCUT ×2 (12:28→23:51)
[2025-01-27] MEDS: warfarin 4 mg Tablet PO (12:28)
[2025-01-27] MEDS: warfarin 2 mg Tablet PO (12:28)
[2025-01-27] MEDS: pantoprazole DR 40 mg Tablet PO (17:32)
[2025-01-27] MEDS: trazodone 150 mg Tablet 75 MG PO (17:32)
[2025-01-28] VITALS (9 sets, daily range): BP systolic 114–143; BP diastolic 62–104; PULSE 75–107; RESP 18–27; TEMP 36.6–37.1; O2SAT 94–96; BMI 35.2
[2025-01-28 03:19] LABS: Basophils % 0.6 %; Eosinophils # 0.4 10^3/uL (0.0-0.8); Eosinophils % 5.3 %; Hematocrit 24.3 % (36-47); Lymphocytes # 1.8 10^3/uL (0.8-4.8); Lymphocytes % 26.9 %; Mean Corpuscular HGB Conc 31.7 g/dL (30-55); Mean Corpuscular Hemoglobin 30.9 pg (27-33); Mean Corpuscular Volume 97.6 fl (85-98); Mean Platelet Volume 11.4 fL (7.4-10.4); Monocytes # 0.5 10^3/uL (0.2-0.9); Monocytes % 7.3 %; Neutrophils # 3.96 10^3/uL (1.8-7.7); Neutrophils % 58.7 %; Nucleated Red Blood Cells % 0 %; Platelet Count 154 10^3/cmm (157-399); Red Blood Count 2.49 10^6/uL (3.85-5.65); Red Cell Distribution Width 15.4 % (12.1-15.1); White Blood Count 6.74 10^3/uL (3.29-11.43)
[2025-01-28 03:28] LABS: INR 1.34 (0.8-1.2)
[2025-01-28 03:45] LABS: Albumin Level 2.9 g/dL (3.5-5.2); Anion Gap 9.9 (5-19); Blood Urea Nitrogen 13 mg/dL (8-23); Calcium 8.6 mg/dL (8.5-10.5); Carbon Dioxide 24 mmol/L (22-29); Chloride 113 mmol/L (98-107); Creatinine Clr Calc Pharmacy 40.3136; Glucose 107 mg/dL (65-115); Phosphorus 3.2 mg/dL (2.5-4.5); Potassium 3.9 mmol/L (3.5-5.1); Sodium 143 mmol/L (136-145)
[2025-01-28] MEDS: acetaminophen 325 mg Tablet 650 MG PO (04:46)
--- NOTE | 2025-01-28 07:54 | PC.NURSE ---
Renewed patient xanax order per Dr Villafana.
[2025-01-28] MEDS: ALPRAZolam 0.5 mg Tablet 0.25 MG PO ×2 (08:21→21:52)
[2025-01-28] MEDS: pantoprazole DR 40 mg Tablet PO ×2 (08:22→17:53)
[2025-01-28] MEDS: metoprolol tartrate 25 mg Tablet PO ×2 (08:22→17:53)
--- NOTE | 2025-01-28 09:27 | PC.SOCIAL ---
IMM Updated Updated pt on IMM. No questions voiced. Provided pt a copy. Initialed, dated, & timed copy in chart.
--- NOTE | 2025-01-28 10:50 | P.PN_ITS ---
Subjective 2 Subjective: No acute events overnight. Patient seen at the bedside and she has no new complaints. Vitals/I&O/Wt Last Vital Signs Temp 98.0 F 01/28/25 08:00 Pulse 107 H 01/28/25 08:00 Resp 19 H 01/28/25 08:00 BP 143/104 01/28/25 08:00 Pulse Ox 94 01/28/25 08:00 O2 Del Method Room Air 01/28/25 08:00 01/27/25 01/28/25 01/28/25 22:59 06:59 14:59 Intake Total 290.000 / 940.000 50 / 990.000 480 / 480 Balance 290.000 / 940.000 50 / 990.000 480 / 480 Weight last 48 hrs Weight 93.128 kg Weight 91.852 kg Physical Exam 2 Narrative: General: Awake, alert, no acute distress HEENT: PERRLA, pupils bilaterally equal and reactive Chest: Clear to auscultation bilaterally, no wheezes or crackles CVS: S1-S2 regular, no murmurs, no tachycardia, no gallops, no rubs Abdomen: Soft, nontender, no organomegaly, bowel sounds present Neuro: No focal deficits, no facial deformity, AO x3, power 5/5 in all limbs Data 01/28/25 02:54 01/28/25 02:54 Micro: Microbiology 01/23/25 07:10 Blood Culture - Final Blood NO GROWTH AFTER 5 DAYS 01/23/25 07:08 Blood Culture - Final Blood NO GROWTH AFTER 5 DAYS A&P Assessment and plan (1) Lower GI bleed: (2) Hemorrhagic shock: (3) CAD (coronary artery disease): (4) Atrial fibrillation: (5) History of mitral valve replacement with bioprosthetic valve: Plan (1) Lower GI bleed: (2) On Coumadin for atrial fibrillation: (3) Anticoagulant long-term use: (4) Atrial fibrillation: (5) CAD (coronary artery disease): (6) HTN (hypertension): Plan 84-year-old female with past medical history of A-fib, bioprosthetic mitral valve on Coumadin for anticoagulation presented with lower GI bleeding and hemorrhagic shock. #Hemorrhagic shock - In setting of lower GI bleed. -Received total blood transfusion in the ER. -Colonoscopy did not show any active bleeding sites -Hemoglobin trending down today . She denies blood in her stool -Continue Protonix - Continue to monitor -Repeat hemoglobin today and transfuse as appropriate #A-fib with RVR - Continue metoprolol -Warfarin reversed in the ER because of hemorrhagic shock with Kcentra and vitamin K and 1 unit of FFP. -Continue warfarin with Lovenox bridge -Monitor INR Bioprosthetic mitral valve: -Echo showed normal EF, normal functioning bioprosthetic valve #Hypertension - Can resume antihypertensives Full code dispo: DC soon SCD for DVT prophylaxis Protonix for PUD prophylaxis PDMP PDMP Reviewed: Not Reviewed Attestations 2 Medical Necessity Statement*: Patient to continue Coumadin with Lovenox , monitor blood counts. Possible discharge tomorrow Coding Level of Care Code Acute Code for Chg Fwd Diagnoses Lower GI bleed K92.2 Hemorrhagic shock R57.8 CAD (coronary artery disease) I25.10 Atrial fibrillation I48.91 History of mitral valve replacement with bioprosthetic valve Z95.3
[2025-01-28] MEDS: warfarin 2 mg Tablet PO (15:57)
[2025-01-28] MEDS: warfarin 4 mg Tablet PO (15:57)
[2025-01-28] MEDS: enoxaparin 100 mg/mL Syringe 90 MG SUBCUT (15:57)
[2025-01-28] MEDS: trazodone 150 mg Tablet 75 MG PO (17:53)
[2025-01-28] MEDS: guaiFENesin 600 mg Tablet 1200 MG PO (21:52)
[2025-01-28] MEDS: ipratropium-albuterol 3 mL Neb INHALATION (22:02)
[2025-01-29] VITALS (10 sets, daily range): BP systolic 103–123; BP diastolic 63–94; PULSE 82–101; RESP 13–22; TEMP 36.6–37; O2SAT 94–99
[2025-01-29] MEDS: enoxaparin 100 mg/mL Syringe 90 MG SUBCUT ×3 (00:52→22:54)
[2025-01-29 03:39] LABS: Basophils # 0.1 10^3/uL (0.0-0.1); Basophils % 0.7 %; Eosinophils # 0.4 10^3/uL (0.0-0.8); Eosinophils % 5.4 %; Hematocrit 24.5 % (36-47); Lymphocytes # 2.1 10^3/uL (0.8-4.8); Mean Corpuscular HGB Conc 31.4 g/dL (30-55); Mean Corpuscular Hemoglobin 30.6 pg (27-33); Mean Corpuscular Volume 97.2 fl (85-98); Mean Platelet Volume 11.9 fL (7.4-10.4); Monocytes # 0.7 10^3/uL (0.2-0.9); Monocytes % 8.6 %; Neutrophils # 4.28 10^3/uL (1.8-7.7); Neutrophils % 55.9 %; Nucleated Red Blood Cells % 0 %; Platelet Count 170 10^3/cmm (157-399); Red Blood Count 2.52 10^6/uL (3.85-5.65); Red Cell Distribution Width 15.9 % (12.1-15.1); White Blood Count 7.65 10^3/uL (3.29-11.43)
[2025-01-29 03:54] LABS: INR 1.54 (0.8-1.2)
[2025-01-29 04:00] LABS: Anion Gap 14.3 (5-19); Blood Urea Nitrogen 12 mg/dL (8-23); Calcium 8.5 mg/dL (8.5-10.5); Carbon Dioxide 21 mmol/L (22-29); Chloride 113 mmol/L (98-107); Creatinine Clr Calc Pharmacy 49.6338; Glucose 98 mg/dL (65-115); Phosphorus 3.1 mg/dL (2.5-4.5); Potassium 4.3 mmol/L (3.5-5.1); Sodium 144 mmol/L (136-145)
--- NOTE | 2025-01-29 06:44 | PC.NURSE ---
Patient was having a cough and congestion. Dr Villafana was notified and new order for mucinex was ordered.
[2025-01-29] MEDS: acetaminophen 325 mg Tablet 650 MG PO ×2 (07:18→13:53)
[2025-01-29] MEDS: ALPRAZolam 0.5 mg Tablet 0.25 MG PO ×3 (07:18→22:54)
[2025-01-29] MEDS: metoprolol tartrate 25 mg Tablet PO ×2 (07:18→17:49)
[2025-01-29] MEDS: pantoprazole DR 40 mg Tablet PO ×2 (07:19→17:49)
--- NOTE | 2025-01-29 10:11 | P.PN_ITS ---
Subjective 2 Subjective: No acute events overnight. Patient seen at the bedside and she has no new complaints. Vitals/I&O/Wt Last Vital Signs Temp 97.9 F 01/29/25 07:11 Pulse 86 01/29/25 07:11 Resp 21 H 01/29/25 07:11 BP 122/82 01/29/25 07:11 Pulse Ox 95 01/29/25 07:11 O2 Del Method Room Air 01/29/25 07:11 01/28/25 01/29/25 01/29/25 22:59 06:59 14:59 Intake Total 440 / 920 100 / 1020 480 / 480 Balance 440 / 920 100 / 1020 480 / 480 Weight last 48 hrs Weight 91.49 kg Weight 93.128 kg Physical Exam 2 Narrative: General: Awake, alert, no acute distress HEENT: PERRLA, pupils bilaterally equal and reactive Chest: Clear to auscultation bilaterally, no wheezes or crackles CVS: S1-S2 regular, no murmurs, no tachycardia, no gallops, no rubs Abdomen: Soft, nontender, no organomegaly, bowel sounds present Neuro: No focal deficits, no facial deformity, AO x3, power 5/5 in all limbs Data 01/29/25 02:33 01/29/25 02:33 Micro: Microbiology 01/23/25 07:10 Blood Culture - Final Blood NO GROWTH AFTER 5 DAYS 01/23/25 07:08 Blood Culture - Final Blood NO GROWTH AFTER 5 DAYS A&P Assessment and plan (1) Lower GI bleed: (2) Hemorrhagic shock: (3) CAD (coronary artery disease): (4) Atrial fibrillation: (5) History of mitral valve replacement with bioprosthetic valve: Plan (1) Lower GI bleed: (2) On Coumadin for atrial fibrillation: (3) Anticoagulant long-term use: (4) Atrial fibrillation: (5) CAD (coronary artery disease): (6) HTN (hypertension): Plan 84-year-old female with past medical history of A-fib, bioprosthetic mitral valve on Coumadin for anticoagulation presented with lower GI bleeding and hemorrhagic shock. #Hemorrhagic shock - In setting of lower GI bleed. -Received total blood transfusion in the ER. -Colonoscopy did not show any active bleeding sites -Hemoglobin trending down today somewhat . She denies blood in her stool -Continue Protonix - Continue to monitor -Repeat hemoglobin , transfuse as appropriate #A-fib with RVR - Continue metoprolol -Warfarin reversed in the ER because of hemorrhagic shock with Kcentra and vitamin K and 1 unit of FFP. -Continue warfarin with Lovenox bridge -Monitor INR Bioprosthetic mitral valve: -Echo showed normal EF, normal functioning bioprosthetic valve #Hypertension - Can resume antihypertensives Full code dispo: DC soon SCD for DVT prophylaxis Protonix for PUD prophylaxis PDMP PDMP Reviewed: Not Reviewed Attestations 2 Medical Necessity Statement*: Patient to continue Coumadin with Lovenox , monitor blood counts. Possible discharge tomorrow Coding Level of Care Code Acute Code for Chg Fwd Diagnoses Lower GI bleed K92.2 Hemorrhagic shock R57.8 CAD (coronary artery disease) I25.10 Atrial fibrillation I48.91 History of mitral valve replacement with bioprosthetic valve Z95.3
[2025-01-29] MEDS: ipratropium-albuterol 3 mL Neb INHALATION (10:21)
[2025-01-29] MEDS: warfarin 2 mg Tablet PO (13:49)
[2025-01-29] MEDS: warfarin 4 mg Tablet PO (13:50)
[2025-01-29] MEDS: diphenhydrAMINE 25 mg Capsule PO ×2 (13:57→22:54)
[2025-01-29] MEDS: trazodone 150 mg Tablet 75 MG PO (17:49)
[2025-01-30 03:20] LABS: Basophils % 0.6 %; Eosinophils # 0.3 10^3/uL (0.0-0.8); Eosinophils % 4.9 %; Hematocrit 25.1 % (36-47); Lymphocytes % 28.5 %; Mean Corpuscular HGB Conc 30.7 g/dL (30-55); Mean Corpuscular Hemoglobin 30.3 pg (27-33); Mean Corpuscular Volume 98.8 fl (85-98); Mean Platelet Volume 11.3 fL (7.4-10.4); Monocytes # 0.6 10^3/uL (0.2-0.9); Monocytes % 8.4 %; Neutrophils # 3.85 10^3/uL (1.8-7.7); Neutrophils % 55.7 %; Nucleated Red Blood Cells % 0 %; Platelet Count 183 10^3/cmm (157-399); Red Blood Count 2.54 10^6/uL (3.85-5.65); Red Cell Distribution Width 16.1 % (12.1-15.1); White Blood Count 6.91 10^3/uL (3.29-11.43)
[2025-01-30 03:34] LABS: Anion Gap 11.3 (5-19); Blood Urea Nitrogen 14 mg/dL (8-23); Carbon Dioxide 24 mmol/L (22-29); Chloride 111 mmol/L (98-107); Creatinine Clr Calc Pharmacy 49.1697; Glucose 107 mg/dL (65-115); Phosphorus 3.6 mg/dL (2.5-4.5); Potassium 4.3 mmol/L (3.5-5.1); Sodium 142 mmol/L (136-145)
[2025-01-30 03:37] LABS: INR 1.73 (0.8-1.2)
[2025-01-30 04:00] VITALS: BP 151/96; PULSE 92; RESP 18; TEMP 36.7; O2SAT 90
[2025-01-30 07:20] VITALS: BP 140/75; PULSE 110; RESP 22; TEMP 36.1; O2SAT 96
[2025-01-30] MEDS: metoprolol tartrate 25 mg Tablet PO ×2 (08:09→18:16)
[2025-01-30] MEDS: pantoprazole DR 40 mg Tablet PO ×2 (08:09→18:17)
[2025-01-30] MEDS: acetaminophen 325 mg Tablet 650 MG PO (08:09)
[2025-01-30] MEDS: ALPRAZolam 0.5 mg Tablet 0.25 MG PO ×2 (08:10→20:55)
[2025-01-30] MEDS: ipratropium-albuterol 3 mL Neb INHALATION (11:09)
[2025-01-30 11:11] VITALS: PULSE 83; RESP 18; O2SAT 94
[2025-01-30 11:41] VITALS: BP 111/71; PULSE 94; RESP 20; O2SAT 95
[2025-01-30] MEDS: TRAMadol 50 mg Tablet PO (12:22)
[2025-01-30] MEDS: enoxaparin 100 mg/mL Syringe 90 MG SUBCUT ×2 (12:23→23:15)
--- NOTE | 2025-01-30 12:59 | P.PN_ITS ---
Subjective 2 Subjective: No new complaints today. Patient said had bowel movements without any blood in them. Medications: Reviewed: Yes Vitals/I&O/Wt Last Vital Signs Temp 97 F L 01/30/25 07:20 Pulse 94 01/30/25 11:41 Resp 20 H 01/30/25 11:41 BP 111/71 01/30/25 11:41 Pulse Ox 95 01/30/25 11:41 O2 Del Method Room Air 01/30/25 11:11 01/29/25 01/30/25 01/30/25 22:59 06:59 14:59 Intake Total 680 / 1640 450 / 2090 480 / 480 Output Total Balance 679 / 1639 450 / 2089 480 / 480 Weight last 48 hrs Weight 94.256 kg Weight 91.49 kg Physical Exam 2 Narrative: General: No acute distress, AO x3 HEENT: PERRLA, pupils bilaterally equal and reactive, pallors not present Chest: Normal vesicular breath sounds, no added sounds, equal good air entry bilaterally CVS: S1-S2 regular, no murmurs, no tachycardia, no gallops, no rubs Abdomen: Soft, nontender, no organomegaly, bowel sounds present Neuro: No focal deficits, no facial deformity, AO x3, power 5/5 in all limbs Data 01/30/25 03:06 01/30/25 03:06 A&P Assessment and plan (1) Lower GI bleed: (2) Hemorrhagic shock: (3) CAD (coronary artery disease): (4) Atrial fibrillation: (5) History of mitral valve replacement with bioprosthetic valve: Plan (1) Lower GI bleed: (2) On Coumadin for atrial fibrillation: (3) Anticoagulant long-term use: (4) Atrial fibrillation: (5) CAD (coronary artery disease): (6) HTN (hypertension): Plan 84-year-old female with past medical history of A-fib, bioprosthetic mitral valve on Coumadin for anticoagulation presented with lower GI bleeding and hemorrhagic shock. #Hemorrhagic shock - In setting of lower GI bleed. -Received total blood transfusion in the ER. -Colonoscopy did not show any active bleeding sites -Hemoglobin trending down today somewhat . She denies blood in her stool -Continue Protonix - Continue to monitor -Repeat hemoglobin , transfuse as appropriate #A-fib with RVR - Continue metoprolol -Warfarin reversed in the ER because of hemorrhagic shock with Kcentra and vitamin K and 1 unit of FFP. -Continue warfarin with Lovenox bridge -Monitor INR Bioprosthetic mitral valve: -Echo showed normal EF, normal functioning bioprosthetic valve #Hypertension - Can resume antihypertensives Full code dispo: DC soon SCD for DVT prophylaxis Protonix for PUD prophylaxis January 30, 2025 Chart reviewed extensively. Patient admitted on January 23, 2025 with hemorrhagic shock from rectal bleeding. Status post endoscopic evaluation with a colonoscopy on January 25, 2025. This showed diverticulosis without perforation or abscess without any acute bleeding. No obvious source of lower GI bleeding was found however possibly may have been a diverticular bleed which stopped by the time patient got colonoscopy. She needed reversal of her INR upon admission. Thereafter has been placed back on warfarin, currently with bridging with full dose Lovenox and warfarin. Today INR is at 1.73. She will receive 6 mg of p.o. warfarin today. Check INR with a.m. labs. Target to achieve INR of 2.0 prior to discharge home. Remove central line that has been placed since the admission. PDMP PDMP Reviewed: Not Reviewed Attestations 2 Medical Necessity Statement*: bridging anticoagulkation Coding Level of Care Code Acute Code for Chg Fwd Diagnoses Lower GI bleed K92.2 Hemorrhagic shock R57.8 CAD (coronary artery disease) I25.10 Atrial fibrillation I48.91 History of mitral valve replacement with bioprosthetic valve Z95.3
[2025-01-30] MEDS: warfarin 2 mg Tablet PO (14:27)
[2025-01-30] MEDS: warfarin 4 mg Tablet PO (14:27)
[2025-01-30 16:00] VITALS: BP 127/67; PULSE 91; RESP 20; TEMP 36.4; O2SAT 91
[2025-01-30 20:00] VITALS: BP 129/81; PULSE 93; TEMP 36.7; O2SAT 92
[2025-01-30] MEDS: trazodone 150 mg Tablet 75 MG PO (20:56)
[2025-01-31] VITALS (59 sets, daily range): BP systolic 100–157; BP diastolic 61–92; PULSE 87–105; RESP 18–20; TEMP 36.6–37.2; O2SAT 89–95
[2025-01-31 06:04] LABS: Basophils % 0.6 %; Eosinophils # 0.4 10^3/uL (0.0-0.8); Eosinophils % 5.3 %; Hematocrit 25.1 % (36-47); Lymphocytes # 1.6 10^3/uL (0.8-4.8); Lymphocytes % 23.1 %; Mean Corpuscular HGB Conc 31.5 g/dL (30-55); Mean Corpuscular Hemoglobin 31.3 pg (27-33); Mean Corpuscular Volume 99.6 fl (85-98); Mean Platelet Volume 11.3 fL (7.4-10.4); Monocytes # 0.5 10^3/uL (0.2-0.9); Monocytes % 7.9 %; Neutrophils # 4.19 10^3/uL (1.8-7.7); Neutrophils % 61.3 %; Nucleated Red Blood Cells % 0 %; Platelet Count 187 10^3/cmm (157-399); Red Blood Count 2.52 10^6/uL (3.85-5.65); Red Cell Distribution Width 16.3 % (12.1-15.1); White Blood Count 6.83 10^3/uL (3.29-11.43)
[2025-01-31 06:20] LABS: INR 1.81 (0.8-1.2)
[2025-01-31 06:38] LABS: Alanine Aminotransferase 18 U/L (0-33); Albumin Level 3.1 g/dL (3.5-5.2); Alkaline Phosphatase 82 U/L (35-105); Anion Gap 13.5 (5-19); Aspartate Amino Transferase 19 U/L (0-32); Blood Urea Nitrogen 12 mg/dL (8-23); Calcium 8.6 mg/dL (8.5-10.5); Carbon Dioxide 21 mmol/L (22-29); Chloride 112 mmol/L (98-107); Creatinine Clr Calc Pharmacy 49.7992; Globulin 2.3 g/dL (1.3-4.6); Glucose 96 mg/dL (65-115); Osmolality Calculated 294 mOsm/kg (285-295); Potassium 4.5 mmol/L (3.5-5.1); Sodium 142 mmol/L (136-145); Total Bilirubin 0.2 mg/dL (0.15-1.2); Total Protein 5.4 g/dL (6.6-8.7)
[2025-01-31] MEDS: metoprolol tartrate 25 mg Tablet PO ×2 (08:26→17:23)
[2025-01-31] MEDS: ALPRAZolam 0.5 mg Tablet 0.25 MG PO ×2 (08:26→21:09)
[2025-01-31] MEDS: pantoprazole DR 40 mg Tablet PO ×2 (08:26→17:23)
[2025-01-31] MEDS: enoxaparin 100 mg/mL Syringe 90 MG SUBCUT (12:16)
[2025-01-31] MEDS: TRAMadol 50 mg Tablet PO ×2 (12:16→17:24)
[2025-01-31] MEDS: ipratropium-albuterol 3 mL Neb INHALATION (14:20)
--- NOTE | 2025-01-31 14:50 | P.PN_ITS ---
Subjective 2 Subjective: INR at 1.8 today. No acute interim events. Hemoglobin stable at 7.9 today. Medications: Reviewed: Yes Vitals/I&O/Wt Last Vital Signs Temp 98.3 F 01/31/25 12:00 Pulse 88 01/31/25 14:20 Resp 20 H 01/31/25 14:20 BP 120/72 01/31/25 12:00 Pulse Ox 95 01/31/25 14:20 O2 Del Method Room Air 01/31/25 14:20 01/30/25 01/31/25 01/31/25 22:59 06:59 14:59 Intake Total 360 / 1080 960 / 960 Balance 360 / 1080 960 / 960 Weight last 48 hrs Weight 93.712 kg Weight 93.712 kg Weight 94.256 kg Physical Exam 2 Narrative: General: No acute distress, AO x3 HEENT: PERRLA, pupils bilaterally equal and reactive, pallors not present Chest: Normal vesicular breath sounds, no added sounds, equal good air entry bilaterally CVS: S1-S2 regular, no murmurs, no tachycardia, no gallops, no rubs Abdomen: Soft, nontender, no organomegaly, bowel sounds present Neuro: No focal deficits, no facial deformity, AO x3, power 5/5 in all limbs Data 01/31/25 05:33 01/31/25 05:33 A&P Assessment and plan (1) Lower GI bleed: (2) Hemorrhagic shock: (3) CAD (coronary artery disease): (4) Atrial fibrillation: (5) History of mitral valve replacement with bioprosthetic valve: Plan (1) Lower GI bleed: (2) On Coumadin for atrial fibrillation: (3) Anticoagulant long-term use: (4) Atrial fibrillation: (5) CAD (coronary artery disease): (6) HTN (hypertension): Plan 84-year-old female with past medical history of A-fib, bioprosthetic mitral valve on Coumadin for anticoagulation presented with lower GI bleeding and hemorrhagic shock. #Hemorrhagic shock - In setting of lower GI bleed. -Received total blood transfusion in the ER. -Colonoscopy did not show any active bleeding sites -Hemoglobin trending down today somewhat . She denies blood in her stool -Continue Protonix - Continue to monitor -Repeat hemoglobin , transfuse as appropriate #A-fib with RVR - Continue metoprolol -Warfarin reversed in the ER because of hemorrhagic shock with Kcentra and vitamin K and 1 unit of FFP. -Continue warfarin with Lovenox bridge -Monitor INR Bioprosthetic mitral valve: -Echo showed normal EF, normal functioning bioprosthetic valve #Hypertension - Can resume antihypertensives Full code dispo: DC soon SCD for DVT prophylaxis Protonix for PUD prophylaxis January 30, 2025 Chart reviewed extensively. Patient admitted on January 23, 2025 with hemorrhagic shock from rectal bleeding. Status post endoscopic evaluation with a colonoscopy on January 25, 2025. This showed diverticulosis without perforation or abscess without any acute bleeding. No obvious source of lower GI bleeding was found however possibly may have been a diverticular bleed which stopped by the time patient got colonoscopy. She needed reversal of her INR upon admission. Thereafter has been placed back on warfarin, currently with bridging with full dose Lovenox and warfarin. Today INR is at 1.73. She will receive 6 mg of p.o. warfarin today. Check INR with a.m. labs. Target to achieve INR of 2.0 prior to discharge home. Remove central line that has been placed since the admission. January 31, 2025 Patient currently undergoing bridging anticoagulation with Lovenox overlapping with warfarin. INR today is at 1.8. She is going to receive 6 mg of p.o. warfarin again. Discussed with the patient that at this point she may be able to return home as long as we are able to ensure INR checks daily as an outpatient. Patient does not have an INR monitor at home and as such is very anxious about the idea of going home alone while not having bridged to an INR of 2.0. She states that she has had a stroke previously and is worried about her subtherapeutic INR at this point. She states that it would be difficult for her to get out on a daily basis to get INR checks [place] Will continue bridging anticoagulation here in the hospital until INR reaches a goal of 2.0. Thereafter discontinue Lovenox and patient will be discharged home on Coumadin. Hemoglobin remained stable, no active signs of bleeding PDMP PDMP Reviewed: Not Reviewed Attestations 2 Medical Necessity Statement*: Bridging anticoagulation Coding Level of Care Code Acute Code for [facility] Fwd Diagnoses Lower GI bleed K92.2 Hemorrhagic shock R57.8 CAD (coronary artery disease) I25.10 Atrial fibrillation I48.91 History of mitral valve replacement with bioprosthetic valve Z95.3
--- NOTE | 2025-01-31 15:04 | PC.SOCIAL ---
IMM Updated Updated pt on IMM. No questions voiced. Provided pt a copy. Initialed, dated, & timed copy in chart.
[2025-01-31] MEDS: warfarin 2 mg Tablet PO (15:55)
[2025-01-31] MEDS: warfarin 4 mg Tablet PO (15:55)
[2025-01-31] MEDS: trazodone 150 mg Tablet 75 MG PO (21:09)
[2025-02-01] VITALS (57 sets, daily range): BP systolic 100–133; BP diastolic 63–82; PULSE 94–108; RESP 16–22; TEMP 36.4–36.7; O2SAT 85–96
[2025-02-01] MEDS: enoxaparin 100 mg/mL Syringe 90 MG SUBCUT ×2 (00:41→11:32)
[2025-02-01 03:23] LABS: Basophils % 0.4 %; Eosinophils # 0.4 10^3/uL (0.0-0.8); Eosinophils % 4.5 %; Hematocrit 29.4 % (36-47); Lymphocytes # 2.4 10^3/uL (0.8-4.8); Mean Corpuscular HGB Conc 30.6 g/dL (30-55); Mean Corpuscular Hemoglobin 30.6 pg (27-33); Mean Platelet Volume 11.4 fL (7.4-10.4); Monocytes # 0.5 10^3/uL (0.2-0.9); Neutrophils % 55.8 %; Nucleated Red Blood Cells % 0 %; Platelet Count 228 10^3/cmm (157-399); Red Blood Count 2.94 10^6/uL (3.85-5.65); White Blood Count 7.71 10^3/uL (3.29-11.43)
[2025-02-01 03:37] LABS: INR 1.81 (0.8-1.2)
[2025-02-01 03:45] LABS: Alanine Aminotransferase 23 U/L (0-33); Albumin Level 3.3 g/dL (3.5-5.2); Alkaline Phosphatase 97 U/L (35-105); Anion Gap 15.3 (5-19); Aspartate Amino Transferase 25 U/L (0-32); Blood Urea Nitrogen 13 mg/dL (8-23); Calcium 8.9 mg/dL (8.5-10.5); Carbon Dioxide 22 mmol/L (22-29); Chloride 108 mmol/L (98-107); Creatinine Clr Calc Pharmacy 44.8193; Globulin 2.9 g/dL (1.3-4.6); Glucose 117 mg/dL (65-115); Osmolality Calculated 293 mOsm/kg (285-295); Potassium 4.3 mmol/L (3.5-5.1); Sodium 141 mmol/L (136-145); Total Bilirubin 0.3 mg/dL (0.15-1.2); Total Protein 6.2 g/dL (6.6-8.7)
[2025-02-01] MEDS: metoprolol tartrate 25 mg Tablet PO (07:33)
[2025-02-01] MEDS: TRAMadol 50 mg Tablet PO (07:34)
[2025-02-01] MEDS: pantoprazole DR 40 mg Tablet PO (07:34)
[2025-02-01] MEDS: ALPRAZolam 0.5 mg Tablet 0.25 MG PO (07:40)
[2025-02-01] MEDS: warfarin 3 mg Tablet PO (11:31)
[2025-02-01] MEDS: warfarin 4 mg Tablet PO (11:31)
--- NOTE | 2025-02-01 12:23 | P.DS_ITS ---
Discharge Providers Date of Admission: 01/23/25 13:19 Date of Discharge: February 01, 2025 Attending Provider at Admission: Brian Shah MD Attending Provider at Discharge: Polly Lorenz MD Primary Care Provider: Markel Correia MD Diagnoses at Discharge Discharge Diagnosis (1) Lower GI bleed: Status: Acute (2) Hemorrhagic shock: Status: Acute (3) CAD (coronary artery disease): Status: Acute (4) Atrial fibrillation: Status: Acute (5) History of mitral valve replacement with bioprosthetic valve: Status: Acute Reason for Visit Reason for Visit: rectal bleeding Brief History: 84 year old female with past medical his tory of bioprosthetic mitral valve, hypertension, A-fib with anticoagulation on Coumadin, TIA, 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 She became hypotensive and had presyncopal event. Central line was placed, she was ordered 2 unit of blood transfusion and needed pressor support. She had a flexible sigmoidoscopy in the emergency room which showed sigmoid and rectum without any inflammation or site of active bleeding. Old clotted blood was seen. Eventually she underwent a full colonoscopy on January 25, 2025 Which showed that diverticulosis was present without perforation or abscess or signs of active bleeding.Warfarin was reversed in the ER because of hemorrhagic shock with Kcentra and vitamin K and 1 unit of FFP. She remained in the hospital and once active bleeding was ruled out, she started bridging anticoagulation with full dose lovenox and warfarin. She has no blood with her bowel movements currently. Today at discharge INR is at 1.8, she has been discharged after receiving 7mg po coumadin and is instructed to take 8mg tomorrow. On she will follow up with PCP on morning. Care plan discussed with PCP Dr. Correia additionally. Physical Exam Narrative: General: No acute distress, AO x3 HEENT: PERRLA, pupils bilaterally equal and reactive, pallors not present Chest: Normal vesicular breath sounds, no added sounds, equal good air entry bilaterally CVS: S1-S2 regular, no murmurs, no tachycardia, no gallops, no rubs Abdomen: Soft, nontender, no organomegaly, bowel sounds present Neuro: No focal deficits, no facial deformity, AO x3, power 5/5 in all limbs Discharge Data Studies Completed and Pending Completed Studies During Hospitalization Category Date Time Status CT abdomen pelvis w con* [id number] Stat Cat Scan 01/23/25 06:05 Completed XR chest 1V portable [id number] Routine Exams 01/23/25 08:09 Completed CV. echo complete* [id number] Routine Ultrasound 01/23/25 13:19 Completed Pending at discharge Category Date Time Status Complete Crossmatch Stat Lab 01/23/25 05:55 Results Frozen Plasma FZ <24 1st Cont Stat Lab 01/23/25 05:55 Results Leukocyte Reduced RBC Stat Lab 01/23/25 05:55 Results Prothrombin Time INR AM LABS Lab 02/02/25 04:00 Ordered Prothrombin Time INR AM LABS Lab 02/03/25 04:00 Ordered Prothrombin Time INR AM LABS Lab 02/04/25 04:00 Ordered Type and Screen Stat Lab 01/23/25 05:55 Results Radiology Impressions Abdomen/Pelvis CT 01/23/25 06:05 IMPRESSION: Acute GI hemorrhage arising from the ascending colon. COMMENTS: Consistent with the [employer]'s Incidental Findings Committee white paper (J Am Neeraj Radiol 2018): Any incidental renal lesion less than 1 cm or classified as too small to characterize, or any incidental cystic renal lesion characterized as simple-appearing, is likely benign. No follow-up imaging is recommended for these lesions per consensus recommendations based on imaging criteria. ADDENDUM: 01/23/25 0755 COMMENT: THIS REPORT CONTAINS FINDINGS THAT MAY BE CRITICAL TO PATIENT CARE. The exam findings were verbally communicated by me to ZUHAIR GREEN via telephone conference at 7:52 AM CDT on 01/23/2025. The findings were acknowledged and understood. Chest X-Ray 01/23/25 08:09 IMPRESSION: The right IJ catheter terminates in the right atrium. Laboratory Results WBC 7.71 10^3/uL (3.29-11.43) 02/01/25 02:54 RBC 2.94 10^6/uL (3.85-5.65) L 02/01/25 02:54 Hgb 9.00 g/dL (11.27-16.99) L 02/01/25 02:54 Hct 29.4 % (36-47) L 02/01/25 02:54 MCV 100.0 fl (85-98) H 02/01/25 02:54 MCH 30.6 pg (27-33) 02/01/25 02:54 MCHC 30.6 g/dL (30-55) 02/01/25 02:54 RDW 17.0 % (12.1-15.1) H 02/01/25 02:54 Plt Count 228 10^3/cmm (157-399) 02/01/25 02:54 MPV 11.4 fL (7.4-10.4) H 02/01/25 02:54 Neut % (Auto) 55.8 % 02/01/25 02:54 Lymph % (Auto) 31.0 % 02/01/25 02:54 [place] % (Auto) 7.0 % 02/01/25 02:54 Eos % (Auto) 4.5 % 02/01/25 02:54 Baso % (Auto) 0.4 % 02/01/25 02:54 Neut # (Auto) 4.30 10^3/uL (1.8-7.7) 02/01/25 02:54 Lymph # (Auto) 2.4 10^3/uL (0.8-4.8) 02/01/25 02:54 [place] # (Auto) 0.5 10^3/uL (0.2-0.9) 02/01/25 02:54 Eos # (Auto) 0.4 10^3/uL (0.0-0.8) 02/01/25 02:54 Baso # (Auto) 0.0 10^3/uL (0.0-0.1) 02/01/25 02:54 Nucleated RBC % (auto) 0 % 02/01/25 02:54 Nucleated RBCs # 0.0 /100WBC 02/01/25 02:54 PT 22.10 SECONDS (12.1-14.9) H 02/01/25 02:54 INR 1.81 (0.8-1.2) H 02/01/25 02:54 APTT 57.2 SECONDS (23.9-36.7) H 01/23/25 05:55 Sodium 141 mmol/L (136-145) 02/01/25 02:54 Potassium 4.3 mmol/L (3.5-5.1) 02/01/25 02:54 Chloride 108 mmol/L (98-107) H 02/01/25 02:54 Carbon Dioxide 22 mmol/L (22-29) 02/01/25 02:54 Anion Gap 15.3 (5-19) 02/01/25 02:54 BUN 13 mg/dL (8-23) 02/01/25 02:54 Creatinine 1.0 mg/dL (0.5-0.9) H 02/01/25 02:54 GFR Calculation Not Reportable 02/01/25 02:54 Glucose 117 mg/dL (65-115) H 02/01/25 02:54 Estimat Average Glucose 111 01/23/25 13:30 Hemoglobin A1c 5.5 % (4.0-6.0) 01/23/25 13:30 Calculated Osmolality 293 mOsm/kg (285-295) 02/01/25 02:54 Lactic Acid 1.2 mmol/L (0.5-2.2) 01/23/25 12:25 Lactic Acid (Sepsis) 1.1 mmol/L (0.5-2.2) 01/23/25 08:40 Calcium 8.9 mg/dL (8.5-10.5) 02/01/25 02:54 Phosphorus 3.6 mg/dL (2.5-4.5) 01/30/25 03:06 Magnesium 1.9 mg/dL (1.7-2.3) 01/26/25 02:26 Iron 76 ug/dL (37-145) 01/23/25 05:55 TIBC 240 mcg/dl 01/23/25 05:55 % Saturation 31.6 % (20-50) 01/23/25 05:55 Unsat Iron Binding 164 ug/dL (112-347) 01/23/25 05:55 Total Bilirubin 0.3 mg/dL (0.15-1.2) 02/01/25 02:54 AST 25 U/L (0-32) 02/01/25 02:54 ALT 23 U/L (0-33) 02/01/25 02:54 Alkaline Phosphatase 97 U/L (35-105) 02/01/25 02:54 C-Reactive Protein 3.6 mg/L (0.0-4.9) 01/23/25 05:55 Total Protein 6.2 g/dL (6.6-8.7) L 02/01/25 02:54 Albumin 3.3 g/dL (3.5-5.2) L 02/01/25 02:54 Globulin 2.9 g/dL (1.3-4.6) 02/01/25 02:54 Triglycerides 96 mg/dL (0-150) 01/24/25 04:48 Cholesterol 141 mg/dL (0-200) 01/24/25 04:48 LDL Cholesterol, Calc 90 mg/dL (50-129) 01/24/25 04:48 HDL Cholesterol 32 mg/dL (60-100) L 01/24/25 04:48 LDL/HDL Ratio 2.81 RATIO (0.00-3.22) 01/24/25 04:48 Cholesterol/HDL Ratio 4.41 mg/dL (0.0-4.40) H 01/24/25 04:48 Vitamin B12 428 pg/mL (232-1245) 01/23/25 05:55 Folate 9.0 ng/mL (4.8-37.3) 01/24/25 04:48 Procalcitonin 0.06 ng/mL (0-0.5) 01/24/25 04:48 TSH 1.75 uIU/mL (0.27-4.20) 01/23/25 05:55 Urine Color Yellow (Yellow) 01/23/25 07:31 Urine Appearance Clear (CLEAR) 01/23/25 07:31 Urine pH 5 (5-7) 01/23/25 07:31 Ur Specific [place] 1.015 (1.005-1.030) 01/23/25 07:31 Urine Protein 2+ (Negative) H 01/23/25 07:31 Urine Glucose (UA) Norm (Normal) 01/23/25 07:31 Urine Ketones Negative (Negative) 01/23/25 07:31 Urine Blood Neg (Negative) 01/23/25 07:31 Urine Nitrate Negative (Negative) 01/23/25 07:31 Urine Bilirubin Neg (Negative) 01/23/25 07:31 Urine Urobilinogen Norm mg/dL (Negative) 01/23/25 07:31 Ur Leukocyte Esterase Negative (Negative) 01/23/25 07:31 Urine RBC Rare /hpf (0-2) 01/23/25 07:31 Urine WBC Rare /hpf (0-5) 01/23/25 07:31 Ur Squamous Epith Cells 0-4 /hpf (0-5) H 01/23/25 07:31 Amorphous Sediment Not Reportable 01/23/25 07:31 Urine Bacteria 1+ /hpf (NONE) H 01/23/25 07:31 Hyaline Casts 0-4 /lpf H 01/23/25 07:31 Fine Granular Casts 0-4 /lpf H 01/23/25 07:31 Blood Type O Negative 01/23/25 05:55 Rho(D) Type Rh negative 01/23/25 05:55 Antibody Screen Negative 01/23/25 05:55 Crossmatch See Detail 01/23/25 05:55 Vitals Last Vital Signs Temp 98.0 F 02/01/25 11:47 Pulse 107 H 02/01/25 11:47 Resp 20 H 02/01/25 11:47 BP 105/82 02/01/25 11:47 Pulse Ox 95 02/01/25 11:47 O2 Del Method Room Air 02/01/25 11:47 Discharge Plan Discharge Patient Disposition: Home Health Service Condition: Stable Prescriptions: New ferrous sulfate 325 mg (65 mg iron) tablet 325 mg PO DAILY 30 Days Qty: 60 0RF Continued alprazolam 0.25 mg tablet 0.25 mg PO TID PRN (Reason: anxiety) Qty: 90 5RF tramadol 50 mg tablet 50 mg PO QID PRN (Reason: pain) Qty: 120 5RF losartan 50 mg tablet 50 mg PO DAILY Rx Instructions: TAKE 1 TABLET ONCE A DAY FOR HYPERTENSION. furosemide 40 mg tablet 40 mg PO BID Rx Instructions: TAKE 1 TABLET TWICE A DAY FOR EDEMA isosorbide mononitrate 30 mg tablet extended release 24 hr 30 mg PO DAILY Rx Instructions: TAKE 1 TABLET EVERY DAY warfarin 4 mg tablet 4 mg PO DAILY Rx Instructions: TAKE 1 TABLET DAILY potassium chloride 20 mEq tablet,ER particles/crystals 20 meq PO DAILY Rx Instructions: TAKE 1 TABLET EVERY DAY trazodone 150 mg tablet 75 mg PO QPM Rx Instructions: TAKE 1/2 TABLET AT BEDTIME NEEDED FOR INSOMNIA metoprolol tartrate 25 mg tablet 25 mg PO BID Rx Instructions: TAKE 1 TABLET TWICE DAILY Discharge Orders: Discharge Order (Routine); Ordered 02/01/25 Ordered By: Polly Lorenz Referrals: [facility] Home Care ([facility]) [Outside] Markel Correia MD [Primary Care Provider, [facility]] - 02/03/25 9:50 am Patient Instructions: Warfarin (By mouth), A-fib (Atrial Fibrillation) (GEN), GI Post Discharge Instructions w/ Anesthesia, Opioid Safety, Post Anesthesia Care Activity Restrictions/Additional Instructions: take 8 mg (2tabs) warfarin on 02/02/25. Home health nurse will come to see you on 02/03 and check your INR. They will contact Dr. Correia's office to inform him. If you INR is greater 2 on , you can take 4mg warfarin daily starting Friday. If INR is less than 2, then keep taking 4mg oral daily and wait for further instructions from your PCP on how to increase your warfarin dose. Discharge Attestations Time Spent in Discharge Care*: less than 30 min Quality Metrics Clinical Quality Measures [ No reported AMI, CVA or VTE this stay] Coding Level of Care Code Acute Code for [facility] Fwd Diagnoses Lower GI bleed K92.2 Hemorrhagic shock R57.8 CAD (coronary artery disease) I25.10 Atrial fibrillation I48.91 History of mitral valve replacement with bioprosthetic valve Z95.3
--- NOTE | 2025-02-01 12:40 | PC.NURSE ---
patient discharged to home. Instruction provided regarding follow up needs and medications. Also instructed patient on use of the discharge lounge. Patient verbalized complete understanding and was agreeable. patient taken by wheelchair to Discharge Lounge .
== END 2025-02-01 12:45 | disposition home health service (06) | DRG 377 ==
LOC: ER 10:50 → ICU 13:07 → CSU 01-24 15:19
PROVIDERS: Emergency Medicine; Internal Medicine; Specialist; Student in an Organized Health Care Education/Training Program; Surgery; Admitting Provider Student in an Organized Health Care Education/Training Program; Emergency Provider Family Medicine; PCP Family Medicine; Visit Provider Student in an Organized Health Care Education/Training Program
PROC: 0DJD8ZZ Inspection of Lower Intestinal Tract, Via Natural or Artificial Opening Endoscopic (ICD-10-PCS; CPT 45330; principal; 2025-01-23 09:30)
DX: K57.31 Diverticulosis of large intestine without perforation or abscess with bleeding (principal); R57.8 Other shock; I25.10 Atherosclerotic heart disease of native coronary artery without angina pectoris; I48.91 Unspecified atrial fibrillation; I11.0 Hypertensive heart disease with heart failure; I50.9 Heart failure, unspecified; Z79.01 Long term (current) use of anticoagulants; Z95.2 Presence of prosthetic heart valve; Z86.73 Personal history of transient ischemic attack (TIA), and cerebral infarction without residual deficits
CPT/HCPCS: 36415; 36592; 45378; 71045; 74177; 80053; 80061; 80069; 81001; 82607; 82746; 83036; 83540; 83550; 83605; 83735; 84100; 84145; 84443; 85014; 85018; 85025; 85610; 85730; 86140; 86850; 86900; 86920; 86927; 87040; 93005; 93306; 94640; 94664; 96365; 96367; 96372; 96374; 96376; 97110; 97116; 97161; 97530; 99291; 99292; J1650; J2371; J2470; J2543; J2704; J3430; J3490; J7030; J7168; J9999; P9017; P9040

== ENCOUNTER → 2025-02-03 09:59 | Outpatient (BNVA) | payer MEDICARE, SELFPAY | PROVIDERS: PCP Family Medicine; Visit Provider Family Medicine | DX: G45.9 Transient cerebral ischemic attack, unspecified (principal) | CPT/HCPCS: 85610 ==

== ENCOUNTER 2025-02-07 13:02 | Outpatient (CLI) | payer MEDICARE, SELFPAY ==
--- NOTE | 2025-02-07 13:17 | XRR_ITS ---
PROCEDURE INFORMATION: Exam: XR Chest Exam date and time: 02/07/2025 1:23 PM Age: 84 years old Clinical indication: Cough; Prior surgery; Surgery date: 6+ months; Surgery type: Heart TECHNIQUE: Imaging protocol: Radiologic exam of the chest. Views: 2 views. COMPARISON: CR XR chest 1V portable [id number] 01/23/2025 8:13 AM FINDINGS: Tubes, catheters and devices: Median sternotomy suture wires. Lungs: Unremarkable. No consolidation. Pleural spaces: Unremarkable. No pleural effusion. No pneumothorax. Heart/Mediastinum: Unremarkable. No cardiomegaly. Bones/joints: Unremarkable. XR/XR chest 2V* [id number] IMPRESSION: No acute findings.
== END 2025-02-07 13:03 | disposition home or self-care (01) ==
PROVIDERS: PCP Family Medicine; Visit Provider Family Medicine
DX: R05.9 Cough, unspecified (principal); I10 Essential (primary) hypertension; I48.91 Unspecified atrial fibrillation; Z79.01 Long term (current) use of anticoagulants; K92.2 Gastrointestinal hemorrhage, unspecified
CPT/HCPCS: 71046; 80053; 85025

== ENCOUNTER → 2025-02-15 08:45 | Outpatient (BNVA) | payer MEDICARE, SELFPAY | PROVIDERS: PCP Family Medicine; Visit Provider Family Medicine | DX: G45.9 Transient cerebral ischemic attack, unspecified (principal); K92.2 Gastrointestinal hemorrhage, unspecified; Z79.01 Long term (current) use of anticoagulants | CPT/HCPCS: 85025; 85610 ==

== ENCOUNTER → 2025-02-22 10:50 | Outpatient (BNVA) | payer MEDICARE, SELFPAY | PROVIDERS: PCP Family Medicine; Visit Provider Family Medicine | DX: I10 Essential (primary) hypertension (principal); I48.91 Unspecified atrial fibrillation; K92.2 Gastrointestinal hemorrhage, unspecified; G45.9 Transient cerebral ischemic attack, unspecified | CPT/HCPCS: 80053; 83880; 84443; 85025; 85610; 86140 ==

== ENCOUNTER → 2025-03-02 08:28 | Outpatient (BNVA) | payer MEDICARE, SELFPAY | PROVIDERS: PCP Family Medicine; Visit Provider Family Medicine | DX: I48.91 Unspecified atrial fibrillation (principal); Z79.01 Long term (current) use of anticoagulants | CPT/HCPCS: 85610 ==

== ENCOUNTER → 2025-03-16 08:46 | Outpatient (BNVA) | payer MEDICARE, SELFPAY | PROVIDERS: PCP Family Medicine; Visit Provider Family Medicine | DX: I48.91 Unspecified atrial fibrillation (principal); Z79.01 Long term (current) use of anticoagulants | CPT/HCPCS: 85610 ==

== ENCOUNTER → 2025-03-31 10:53 | Outpatient (BNVA) | payer MEDICARE, SELFPAY | PROVIDERS: PCP Family Medicine; Visit Provider Family Medicine | DX: I10 Essential (primary) hypertension (principal); I48.91 Unspecified atrial fibrillation; K92.2 Gastrointestinal hemorrhage, unspecified; G45.9 Transient cerebral ischemic attack, unspecified | CPT/HCPCS: 80048; 85025; 85610 ==

== ENCOUNTER → 2025-05-03 10:18 | Outpatient (BNVA) | payer MEDICARE, SELFPAY | PROVIDERS: PCP Family Medicine; Visit Provider Family Medicine | DX: I48.91 Unspecified atrial fibrillation (principal); G45.9 Transient cerebral ischemic attack, unspecified; Z79.01 Long term (current) use of anticoagulants | CPT/HCPCS: 85025; 85610 ==

== ENCOUNTER → 2025-05-31 08:16 | Outpatient (BNVA) | payer MEDICARE, SELFPAY | PROVIDERS: PCP Family Medicine; Visit Provider Family Medicine | DX: I10 Essential (primary) hypertension (principal); I25.10 Atherosclerotic heart disease of native coronary artery without angina pectoris; I48.91 Unspecified atrial fibrillation; G45.9 Transient cerebral ischemic attack, unspecified; Z79.01 Long term (current) use of anticoagulants | CPT/HCPCS: 80053; 80061; 84443; 85025; 85610 ==

== ENCOUNTER → 2025-06-08 08:21 | Outpatient (BNVA) | payer MEDICARE, SELFPAY | PROVIDERS: PCP Family Medicine; Visit Provider Family Medicine | DX: Z79.01 Long term (current) use of anticoagulants (principal) | CPT/HCPCS: 85610 ==

== ENCOUNTER → 2025-06-23 08:37 | Outpatient (BNVA) | payer MEDICARE, SELFPAY | PROVIDERS: PCP Family Medicine; Visit Provider Family Medicine | DX: I48.91 Unspecified atrial fibrillation (principal); Z79.01 Long term (current) use of anticoagulants | CPT/HCPCS: 85610 ==

== ENCOUNTER → 2025-08-04 08:37 | Outpatient (BNVA) | payer MEDICARE, SELFPAY | PROVIDERS: PCP Family Medicine; Visit Provider Family Medicine | DX: Z79.01 Long term (current) use of anticoagulants (principal) | CPT/HCPCS: 85610 ==

== ENCOUNTER → 2025-09-21 09:07 | Outpatient (BNVA) | payer MEDICARE, SELFPAY | PROVIDERS: PCP Family Medicine; Visit Provider Family Medicine | DX: I48.91 Unspecified atrial fibrillation (principal); Z79.01 Long term (current) use of anticoagulants | CPT/HCPCS: 85610 ==